=== PATIENT | male | born 1950 | race Caucasian/White ===

== ENCOUNTER 2016-11-21 09:13 | Day surgery (SDC) | payer MEDICARE, OTHER ==
[~2016-11-21 09:13] MED LIST: CYCLOPENTOLATE 1% OPHTH DROPS 2 ML OPTH ONE; LIDOCAINE-MPF 2% 5 ML VIAL IM ONE; PHENYLEPHRINE 2.5% OPHTH 2 ML DROPS ONE; PHENYLEPHRINE 2.5% OPHTH 2 ML DROPS OPTH ONE; PROPARACAINE 0.5% OPHTH DROPS 15 ML OPTH ONE
[2016-11-21] MEDS ORDERED: LACTATED RINGERS 500 ML IV ONE (09:40)
[2016-11-21] MEDS ORDERED: LIDOCAINE-MPF 2% 5 ML VIAL IM ONE (10:20)
[2016-11-21] MEDS ORDERED: PROPOFOL 200 MG/20 ML VIAL IVP ONE (10:20)
[2016-11-21] MEDS ORDERED: MIDAZOLAM 2 MG/2 ML VIAL IVP ONE (10:20)
[2016-11-21] MEDS ORDERED: EPINEPHrine 1 MG/ML AMP IVP ONE (10:27)
[2016-11-21] MEDS ORDERED: BRIMONIDINE 0.2% OPHTH DROPS 5 ML OPTH ONE (10:27)
[2016-11-21] MEDS ORDERED: CHONDR SULF/HYALURONATE SYRINGE IO ONE (10:28)
[2016-11-21] MEDS ORDERED: TRIAMCIN/MOXIFLOX/VANCO 1 ML VIAL IO ONE ×2 (10:28)
[2016-11-21] MEDS ORDERED: PROPARACAINE 0.5% OPHTH DROPS 15 ML OPTH ONE (10:28)
[2016-11-21] MEDS ORDERED: BSS/LIDOCAINE/EPINEPHRINE 1 ML SYRINGE IO ONE ×2 (10:28)
[2016-11-21] MEDS ORDERED: TIMOLOL 0.5% OPHTH DROPS OPTH ONE (10:28)
== END 2016-11-21 09:14 | disposition home or self-care (01) ==
PROC: 08RJ3JZ Replacement of Right Lens with Synthetic Substitute, Percutaneous Approach (ICD-10-PCS; principal; 2016-11-21 10:30)
DX: H25.11 Age-related nuclear cataract, right eye (principal); I10 Essential (primary) hypertension; Z88.0 Allergy status to penicillin; J45.909 Unspecified asthma, uncomplicated; M10.9 Gout, unspecified; Z79.82 Long term (current) use of aspirin
CPT/HCPCS: 66984; A9270; V2632

== ENCOUNTER 2017-01-17 06:21 | Emergency (ER) | payer MEDICARE, OTHER ==
[2017-01-17 06:28] VITALS: BP 155/83
--- NOTE | 2017-01-17 06:35 | ED Physician Documentation ---
PD HPI LOWER EXT INJURY - Stated complaint Stated Complaint: R FOOT INJURY - Chief complaint Chief Complaint: Ext Problem - History obtained from History obtained from: Patient - History of Present Illness PD HPI LOW EXT INJURY LOCATION: Right, Foot Type of injury: Fall (several feet from on step ladder while picking cherries ( ladder kicked out), and he landed onto right foot with impact and twist. Having pain and swelling in mid foot. Pain with walking. He presumed it would improve over a few days but has not.) Timing - onset: How many days ago (4) Timing - duration: Days (4) Timing - details: Abrupt onset, Still present Worsened by: Moving, Palpating, Other (walking) Associated symptoms: Swelling. No: Weakness, Numbness Similar symptoms before: Has not had sx before Recently seen: Not recently seen Review of Systems Musculoskeletal: denies: Neck pain, Back pain Neurologic: denies: Focal weakness, Numbness PD PAST MEDICAL HISTORY - Past Medical History Cardiovascular: None Respiratory: Asthma Endocrine/Autoimmune: None GI: GERD : None HEENT: None Musculoskeletal: Osteoarthritis Derm: None, Other - Past Surgical History Past Surgical History: Yes General: Hiatal hernia repair Ortho: Shoulder arthroplasty - Present Medications Home Medications: Ambulatory Orders Medication Instructions Recorded Confirmed Allopurinol 300 mg PO DAILY 11/01/14 01/17/17 Aspirin [Aspir 81] 81 mg PO DAILY 11/01/14 01/17/17 Hydroxyurea 1,500 mg PO DAILY 11/01/14 01/17/17 Omeprazole 20 mg PO DAILY 11/01/14 01/17/17 Beclomethasone 40 Mcg [Qvar 40] 2 puffs PO DAILY 11/21/16 01/17/17 Fluorouracil 30 gm TP DAILY 11/21/16 01/17/17 Fluticasone [Flonase] 2 spray JESSI DAILY 11/21/16 01/17/17 Montelukast [Singulair] 10 mg PO DAILY 11/21/16 01/17/17 Tramadol HCl 50 mg PO Q6H PRN #20 tablet 01/17/17 - Allergies Allergies/Adverse Reactions: Allergies Allergy/AdvReac Type Severity Reaction Status Date / Time meperidine HCl * AdvReac Intermediate Hives Verified 01/17/17 06:42 [From Demerol] Penicillins AdvReac Intermediate Hives Verified 01/17/17 06:42 - Social History Does the pt smoke?: No Smoking Status: Never smoker Does the pt drink ETOH?: Yes Does the pt have substance abuse?: No - Immunizations Immunizations are current?: Yes Immunizations: TDAP >10years/unknown - POLST Patient has POLST: No PD ED PE NORMAL - Vitals Vital signs reviewed: Yes - General General: Alert and oriented X 3, Well developed/nourished - Back Back: No CVA TTP, No spinal TTP - Derm Derm: Normal color, Warm and dry - Extremities Extremities: Other (right foot with swelling and bruising mid foot lateral and plantar aspect. ) - Neuro Neuro: No motor deficit, No sensory deficit Results - Vitals Vitals: Vital Signs - 24 hr 01/17/17 06:25 Temperature 36.4 C L Heart Rate 73 Respiratory 16 Rate Blood Pressure 155/83 H O2 Saturation 99 Oxygen O2 Source Room air - Rads (name of study) right foot Radiology: Prelim report reviewed, EMP read contemporaneously (proximal 5th MT fracture, nondisplaced. ) PD MEDICAL DECISION MAKING - ED course Complexity details: reviewed results (he has had foot surgery by Mail Agent at and he will call him for follow up. ), considered differential, d/w patient Departure - Departure Disposition: 01 Home, Self Care Clinical Impression: Metatarsal bone fracture Qualifiers: Encounter type: initial encounter Metatarsal bone: fifth Fracture type: closed Fracture alignment: nondisplaced Laterality: right Qualified Code(s): S92.354A - Nondisplaced fracture of fifth metatarsal bone, right foot, initial encounter for closed fracture Condition: Stable Record reviewed to determine appropriate education?: Yes Instructions: ED Fx Foot Follow-Up: Malik Kaur MD [Primary Care Provider] - Prescriptions: Tramadol HCl 50 mg PO Q6H PRN #20 tablet PRN Reason: Pain Comments: Use the walking boot splint when walking/weight bearing for the initial 10-14 days. Call your Mail Agent for an appt in the next 7-10 days. Elevate and rest the foot often for the swelling. Ibuprofen or Naproxen twice daily for inflammation and pain. Add Tylenol and/or Tramadol as needed for pains.
--- NOTE | 2017-01-17 07:21 | XRAY Preliminary Report ---
Exam: XR Foot 3 View RT IMPRESSION: 1. Acute minimally displaced fifth metatarsal base fracture is noted. 2. Unchanged appearance of postsurgical changes in the foot compared to 2012. [facility] SITE ID: [id number]
--- NOTE | 2017-01-17 07:24 | XRAY Report ---
EXAM: RIGHT FOOT RADIOGRAPHY EXAM DATE: 01/17/2017 06:59 AM. CLINICAL HISTORY: Fall from ladder. COMPARISON: 02/22/2012. TECHNIQUE: 3 views. FINDINGS: Bones: Oblique minimally displaced intra-articular fracture of the base of the fifth metatarsal. Irre gularity of the fifth metatarsal head also noted. There is been resection of the fifth middle phalanx . Pinning of the fourth metatarsal head again noted. Joints: Metallic yumi noted for arthrodesis across the first tarsometatarsal joint with expected a ppearance, without evidence for surrounding lucency or break.. Incomplete fusion across the joint. Me dial subluxations at the second and third MTP joints. Stable joint space narrowing with osteophytes n oted at multiple MTP joints. Soft Tissues: Soft tissue swelling at the lateral aspect of the foot. IMPRESSION: 1. Acute minimally displaced fifth metatarsal base fracture is noted. 2. Unchanged appearance of postsurgical changes in the foot compared to 2011. [facility] Referring Provider Line: [phone] SITE ID: [id number]
== END 2017-01-17 07:29 | disposition home or self-care (01) ==
LOC: ED 06:21
DX: S92.354A Nondisplaced fracture of fifth metatarsal bone, right foot, initial encounter for closed fracture (principal); W11.XXXA Fall on and from ladder, initial encounter; Y93.89 Activity, other specified; Z79.82 Long term (current) use of aspirin
CPT/HCPCS: 99283

== ENCOUNTER 2017-07-04 11:35 | Outpatient (CLI) | payer MEDICARE, OTHER ==
--- NOTE | 2017-07-04 12:16 | XRAY Report ---
RIGHT ELBOW: 07/04/2017 COMPARISON: None. INDICATION: Pain and swelling of the right elbow. History of gout. TECHNIQUE: Three views of the right elbow. FINDINGS: There is a lucent lesion of the proximal radius with internal osteoid matrix. There is a thin zone of transition. There is a small osteophyte of the olecranon process with mild overlying olecranon soft tissue swelling. Normal alignment. No acute bone findings in other regards. IMPRESSION: 1. NONSPECIFIC, NONAGGRESSIVE APPEARING LESION OF THE PROXIMAL RADIUS. 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 2. SMALL OLECRANON ENTHESOPHYTE WITH OVERLYING SOFT TISSUE SWELLING. JOB #: [id number] EXT JOB #: [id number] JENNIFER
== END 2017-07-04 11:36 | disposition home or self-care (01) ==
LOC: DI 11:35
PROVIDERS: ATTEND Physician Assistant Medical
DX: M89.9 Disorder of bone, unspecified (principal); R22.31 Localized swelling, mass and lump, right upper limb; M77.8 Other enthesopathies, not elsewhere classified

== ENCOUNTER 2020-12-13 10:00 | Outpatient (CLI) | payer MEDICARE, OTHER | END 2020-12-13 23:59 | disposition home or self-care (01) | LOC: COV 10:00 | PROVIDERS: ATTEND Urology | DX: Z01.812 Encounter for preprocedural laboratory examination (principal); Z20.822 Contact with and (suspected) exposure to COVID-19 ==

== ENCOUNTER 2021-05-09 17:45 | Outpatient (CLI) | payer MEDICARE, OTHER | END 2021-05-09 17:46 | disposition critical access hospital (66) | LOC: EMS 17:45 | DX: R11.10 Vomiting, unspecified (principal); R19.7 Diarrhea, unspecified; R50.9 Fever, unspecified | CPT/HCPCS: A0425; A0429 ==

== ENCOUNTER 2021-05-09 18:18 | Emergency (ER) | payer MEDICARE, OTHER ==
[2021-05-09] MEDS ORDERED: SODIUM CHLORIDE 0.9% 1,000 ML IV STA (18:24)
[2021-05-09 18:52] LABS: BASOPHILS % (AUTO) 0.3 %; EOSINOPHILS % (AUTO) 0.1 %; HCT - HEMATOCRIT 39.7 % (42.0-52.0); HGB - HEMOGLOBIN 13.6 g/dL (14.0-18.0); LYMPHOCYTES % (AUTO) 6.2 %; MEAN CORPUSCULAR HEMOGLOBIN 38.5 pg (27.0-31.0); MEAN CORPUSCULAR HGB CONC 34.3 g/dL (32.0-36.0); MEAN CORPUSCULAR VOLUME 112.5 fL (80.0-94.0); MEAN PLATELET VOLUME 9.4 fL (7.4-11.4); MONOCYTES % (AUTO) 14.4 %; NEUTROPHILS % (AUTO) 73.2 %; PLT - PLATELET COUNT 385 10^3/uL (130-450); RED BLOOD COUNT 3.53 10^6/uL (4.70-6.10); RED CELL DISTRIBUTION WIDTH 13.7 % (12.0-15.0); WHITE BLOOD COUNT 6.9 x10^3/uL (4.8-10.8)
[2021-05-09 18:54] LABS: SLIDE REVIEW? Indicated
[2021-05-09 19:09] LABS: ALBUMIN 4.3 g/dL (3.2-5.5); ALBUMIN/GLOBULIN RATIO 1.5 (1.0-2.2); CALCIUM 8.8 mg/dL (8.5-10.3); POTASSIUM 3.5 mmol/L (3.5-5.0); TOTAL PROTEIN 7.1 g/dL (6.7-8.2)
[2021-05-09 19:19] LABS: ABNORMAL LYMPHS % (MANUAL) 0 %
[2021-05-09 19:23] LABS: BAND NEUTROPHILS % (MANUAL) 10 %; BASOPHILS # (MANUAL) 0.1 10^3/uL (0-0.1); BASOPHILS % (MANUAL) 1 %; LYMPHOCYTES # (MANUAL) 0.7 10^3/uL (1.5-3.5); LYMPHOCYTES % (MANUAL) 10 %; METAMYELOCYTES % (MANUAL) 1 %; MONOCYTES # (MANUAL) 0.9 10^3/uL (0.0-1.0); NEUTROPHILS # (MANUAL) 5.2 10^3/uL (1.5-6.6)
[2021-05-09 19:25] LABS: DIFFERENTIAL COMMENT MANUAL DIFFERENTIAL; PLATELET ESTIMATE, MANUAL NORMAL (130-450,000) (NORMAL); PLATELET MORPHOLOGY NORMAL APPEARANCE (NORMAL); WBC MORPHOLOGY (MULTIPLE) NORMAL APPEARANCE (NORMAL)
[2021-05-09 20:09] LABS: B. PARAPERTUSSIS- RESP PCR PAN NOT DETECTED; B. PERTUSSIS- RESP PCR PANEL NOT DETECTED; C. PNEUMONIAE- RESP PCR PANEL NOT DETECTED; CORONAVIRUS 229E-RESP PCR NOT DETECTED; CORONAVIRUS HKU1-RESP PCR NOT DETECTED; CORONAVIRUS NL63-RESP PCR NOT DETECTED; CORONAVIRUS OC43-RESP PCR NOT DETECTED; HUMAN METAPNEUMOVIRUS NOT DETECTED; INFLUENZA A- RESP PCR PANEL NOT DETECTED; INFLUENZA B - RESP PCR PANEL NOT DETECTED; M. PNEUMONIAE- RESP PCR PANEL NOT DETECTED; PARAINFLUENZA VIRUS 1 NOT DETECTED; PARAINFLUENZA VIRUS 2 NOT DETECTED; PARAINFLUENZA VIRUS 3 NOT DETECTED; PARAINFLUENZA VIRUS 4 NOT DETECTED; RHINOVIRUS/ENTEROVIRUS NOT DETECTED; RSV- RESP PCR PANEL NOT DETECTED; SARS-CoV-2 -RESP PCR PANEL NOT DETECTED
--- NOTE | 2021-05-09 21:02 | ED Physician Documentation ---
History of Present Illness - Stated complaint Stated Complaint: N/V/D - Chief complaint Chief Complaint: General - History obtained from History obtained from: Patient - History of Present Illness Timing: How many days ago (2) Pain level max: 0 Pain level now: 0 - Additonal information Additional information: Patient is a 70-year-old male who presents to the emergency department stating he is. He went to the walk-in clinic today and was sent here for further evaluation. He states he did have fevers 2 days ago, none today. No recent antibiotics, no recent travel. He does not know anyone else who has been ill. Has been vaccinated against Covid. No cough. No congestion. No sore throat. He states that he is starting to feel better. He was having diarrhea 8-9 times per day. He states he has not been vomiting tonight. Review of Systems Constitutional: reports: Fever Ears: denies: Ear pain Nose: denies: Rhinorrhea / runny nose, Congestion Throat: denies: Sore throat Cardiac: denies: Chest pain / pressure, Palpitations Respiratory: denies: Dyspnea, Cough GI: reports: Nausea, Vomiting, Diarrhea. denies: Abdominal Pain, Constipation, Hematemesis, Bloody / black stool : denies: Dysuria Skin: denies: Rash Musculoskeletal: denies: Neck pain, Back pain Neurologic: denies: Headache PD PAST MEDICAL HISTORY - Past Medical History Past Medical History: Yes Cardiovascular: None Respiratory: Asthma Endocrine/Autoimmune: None GI: GERD : None HEENT: None Musculoskeletal: Osteoarthritis Derm: None, Other - Past Surgical History Past Surgical History: Yes General: Hiatal hernia repair Ortho: Shoulder arthroplasty - Present Medications Home Medications: Ambulatory Orders Medication Instructions Recorded Confirmed Aspirin [Aspir 81] 81 mg PO DAILY 11/01/14 01/17/17 Hydroxyurea 1,500 mg PO DAILY 11/01/14 01/17/17 Omeprazole 20 mg PO DAILY 11/01/14 01/17/17 allopurinoL [Allopurinol] 300 mg PO DAILY 11/01/14 01/17/17 Beclomethasone 40 Mcg [Qvar 40] 2 puffs PO DAILY 11/21/16 01/17/17 Fluticasone [Flonase] 2 spray JESSI DAILY 11/21/16 01/17/17 Montelukast [Singulair] 10 mg PO DAILY 11/21/16 01/17/17 fluorouraciL [Fluorouracil] 30 gm TP DAILY 11/21/16 01/17/17 Tramadol HCl 50 mg PO Q6H PRN #20 tablet 01/17/17 Ondansetron Odt [Zofran] 4 mg TL Q6H PRN #10 tablet 05/09/21 - Allergies Allergies/Adverse Reactions: Allergies Allergy/AdvReac Type Severity Reaction Status Date / Time meperidine HCl * AdvReac Intermediate Hives Verified 01/17/17 06:42 [From Demerol] Penicillins AdvReac Intermediate Hives Verified 01/17/17 06:42 - Social History Does the pt smoke?: No Smoking Status: Never smoker Does the pt drink ETOH?: Yes Does the pt have substance abuse?: No - Immunizations Immunizations are current?: Yes Immunizations: TDAP >10years/unknown - POLST Patient has POLST: No PD ED PE NORMAL - Vitals Vital signs reviewed: Yes - General General: Alert and oriented X 3, No acute distress, Well developed/nourished - HEENT HEENT: Moist mucous membranes - Neck Neck: Supple, no meningeal sign - Cardiac Cardiac: RRR, Strong equal pulses - Respiratory Respiratory: No respiratory distress, Clear bilaterally - Abdomen Abdomen: Normal bowel sounds, Soft, Non tender, Non distended - Back Back: No spinal TTP - Derm Derm: Warm and dry - Extremities Extremities: No edema - Neuro Neuro: Alert and oriented X 3 - Psych Psych: Normal mood, Normal affect Results - Vitals Vitals: Vital Signs - 24 hr 05/09/21 21:03 Heart Rate 100 Respiratory 14 Rate Blood Pressure 141/87 H O2 Saturation 98 Oxygen O2 Source Room air - Labs Labs: Laboratory Tests 05/09/21 05/09/21 05/09/21 18:45 18:45 18:45 WBC 6.9 RBC 3.53 L Hgb 13.6 L Hct 39.7 L MCV 112.5 H MCH 38.5 H MCHC 34.3 RDW 13.7 Plt Count 385 MPV 9.4 Neut # (Auto) Not Reportable Lymph # (Auto) Not Reportable [place] # (Auto) Not Reportable Eos # (Auto) Not Reportable Baso # (Auto) Not Reportable Absolute Nucleated RBC Not Reportable Total Counted 100 Band Neuts % (Manual) 10 Abnorm Lymph % (Manual) 0 Metamyelocytes % 1 H Nucleated RBC % Not Reportable Neutrophils # (Manual) 5.2 Lymphocytes # (Manual) 0.7 L Monocytes # (Manual) 0.9 Eosinophils # (Manual) 0.0 Basophils # (Manual) 0.1 Differential Comment MANUAL DIFFERENTIAL Manual Slide Review Indicated WBC Morphology NORMAL APPEARANCE Platelet Estimate NORMAL (130-450,000) Platelet Morphology NORMAL APPEARANCE RBC Morph Micro Appear 1+ POLYCHROMASIA Sodium 135 Potassium 3.5 Chloride 99 L Carbon Dioxide 24 Anion Gap 12.0 BUN 25 H Creatinine 1.0 Estimated GFR (MDRD) 73 L Glucose 160 H Calcium 8.8 Total Bilirubin 1.0 AST 24 ALT 22 Alkaline Phosphatase 43 Total Protein 7.1 Albumin 4.3 Globulin 2.8 Albumin/Globulin Ratio 1.5 Lipase 20 L Urine Color Urine Clarity Urine pH Ur Specific [place] Urine Protein Urine Glucose (UA) Urine Ketones Urine Occult Blood Urine Nitrite Urine Bilirubin Urine Urobilinogen Ur Leukocyte Esterase Urine RBC Urine WBC Ur Squamous Epith Cells Urine Bacteria Urine Casts Ur Microscopic Review Urine Culture Comments Nasal Adenovirus (PCR) NOT DETECTED Nasal B. parapertussis DNA (PCR) NOT DETECTED Nasal Coronavir 229E PCR NOT DETECTED Nasal Coronavir HKU1 PCR NOT DETECTED Nasal Coronavir NL63 PCR NOT DETECTED Nasal Coronavir OC43 PCR NOT DETECTED Nasal Enterovir/Rhinovir PCR NOT DETECTED Nasal Influenza B PCR NOT DETECTED Nasal Influenza A PCR NOT DETECTED Nasal Parainfluen 1 PCR NOT DETECTED Nasal Parainfluen 2 PCR NOT DETECTED Nasal Parainfluen 3 PCR NOT DETECTED Nasal Parainfluen 4 PCR NOT DETECTED Nasal RSV (PCR) NOT DETECTED Nasal B.pertussis DNA PCR NOT DETECTED Nasal C.pneumoniae (PCR) NOT DETECTED Jessi Human Metapneumo PCR NOT DETECTED Nasal M.pneumoniae (PCR) NOT DETECTED Nasal SARS-CoV-2 (PCR) NOT DETECTED 05/09/21 21:00 WBC RBC Hgb Hct MCV MCH MCHC RDW Plt Count MPV Neut # (Auto) Lymph # (Auto) [place] # (Auto) Eos # (Auto) Baso # (Auto) Absolute Nucleated RBC Total Counted Band Neuts % (Manual) Abnorm Lymph % (Manual) Metamyelocytes % Nucleated RBC % Neutrophils # (Manual) Lymphocytes # (Manual) Monocytes # (Manual) Eosinophils # (Manual) Basophils # (Manual) Differential Comment Manual Slide Review WBC Morphology Platelet Estimate Platelet Morphology RBC Morph Micro Appear Sodium Potassium Chloride Carbon Dioxide Anion Gap BUN Creatinine Estimated GFR (MDRD) Glucose Calcium Total Bilirubin AST ALT Alkaline Phosphatase Total Protein Albumin Globulin Albumin/Globulin Ratio Lipase Urine Color YELLOW Urine Clarity CLEAR Urine pH 6.0 Ur Specific [place] >=1.030 H Urine Protein 100 H Urine Glucose (UA) NEGATIVE Urine Ketones 15 H Urine Occult Blood SMALL H Urine Nitrite NEGATIVE Urine Bilirubin NEGATIVE Urine Urobilinogen 0.2 (NORMAL) Ur Leukocyte Esterase NEGATIVE Urine RBC 0-5 Urine WBC 0-3 Ur Squamous Epith Cells FEW Squamous Urine Bacteria Few Urine Casts 0-2 Course Granular Ur Microscopic Review INDICATED Urine Culture Comments NOT INDICATED Nasal Adenovirus (PCR) Nasal B. parapertussis DNA (PCR) Nasal Coronavir 229E PCR Nasal Coronavir HKU1 PCR Nasal Coronavir NL63 PCR Nasal Coronavir OC43 PCR Nasal Enterovir/Rhinovir PCR Nasal Influenza B PCR Nasal Influenza A PCR Nasal Parainfluen 1 PCR Nasal Parainfluen 2 PCR Nasal Parainfluen 3 PCR Nasal Parainfluen 4 PCR Nasal RSV (PCR) Nasal B.pertussis DNA PCR Nasal C.pneumoniae (PCR) Jessi Human Metapneumo PCR Nasal M.pneumoniae (PCR) Nasal SARS-CoV-2 (PCR) PD MEDICAL DECISION MAKING - ED course Complexity details: reviewed results, re-evaluated patient, considered differential, d/w patient ED course: Patient is well-appearing, nontoxic. Given IV fluids and does feel better Tolerating p.o. without difficulty here. No significant lab abnormalities. Eating and drinking without difficulty. No diarrhea in the emergency department. Appears to be likely viral gastroenteritis. Abdomen is soft, nontender nondistended on serial exam. Expect this will improve over the next 1 to 2 days. Patient counseled regarding signs and symptoms for which I believe and urgent re-evaluation would be necessary. Patient with good understanding of and agreement to plan and is comfortable going home at this time This document was made in part using voice recognition software. While efforts are made to proofread this document, sound alike and grammatical errors may occur. Departure - Departure Disposition: 01 Home, Self Care Clinical Impression: Viral gastroenteritis Condition: Good Instructions: ED Gastroenteritis Viral Follow-Up: Malik Kaur MD [Primary Care Provider] - Within 1 week Prescriptions: Ondansetron Odt [Zofran] 4 mg TL Q6H PRN #10 tablet PRN Reason: Nausea / Vomiting Comments: This normally improves over 4 to 5 days. Drink plenty of fluids. You can use Tylenol as needed for fever. Return if you worsen. Your prescriptions were sent to [facility] in [place]. Discharge Date/Time: 05/09/21 21:11
[2021-05-09 21:05] VITALS: BP 141/87
[2021-05-09 21:11] LABS: GLUCOSE, URINE (UA) NEGATIVE (NEGATIVE); KETONES,URINE (UA) 15 mg/dL (NEGATIVE); LEUKOCYTE ESTERASE, URINE NEGATIVE (NEGATIVE); NITRITE,URINE NEGATIVE (NEGATIVE); OCCULT BLOOD,URINE SMALL (NEGATIVE); PROTEIN,URINE 100 mg/dL (NEGATIVE); UROBILINOGEN,URINE 0.2 (NORMAL) E.U./dL (NORMAL)
[2021-05-09 21:19] LABS: BILIRUBIN,URINE NEGATIVE (NEGATIVE); CLARITY,URINE CLEAR (CLEAR); ICTOTEST,URINE NEGATIVE; WBC,URINE 0-3 /HPF (0-3)
[2021-05-09 21:20] LABS: BACTERIA,URINE Few /HPF (None Seen); CASTS, URINE 0-2 Course Granular /LPF; RBC,URINE 0-5 /HPF (0-5); SQUAMOUS EPITHELIAL CELL,UR FEW Squamous (<= Few)
== END 2021-05-09 21:11 | disposition home or self-care (01) ==
LOC: EDUNIT# → ED 18:18
DX: A08.4 Viral intestinal infection, unspecified (principal); Z20.822 Contact with and (suspected) exposure to COVID-19; Z79.82 Long term (current) use of aspirin
CPT/HCPCS: 0202U; 36415; 80053; 81001; 81003; 83690; 85025; 87086; 99283

== ENCOUNTER 2021-05-14 11:49 | Inpatient (IN) | payer MEDICARE, OTHER ==
[2021-05-14] MEDS ORDERED: SODIUM CHLORIDE 0.9% 1,000 ML IV STA ×2 (13:16→14:51)
[2021-05-14 13:21] LABS: BASOPHILS % (AUTO) 1.2 %; EOSINOPHILS % (AUTO) 1.7 %; HCT - HEMATOCRIT 42.9 % (42.0-52.0); MEAN CORPUSCULAR HEMOGLOBIN 37.6 pg (27.0-31.0); MEAN CORPUSCULAR VOLUME 107.5 fL (80.0-94.0); MEAN PLATELET VOLUME 9.8 fL (7.4-11.4); MONOCYTES % (AUTO) 7.4 %; NEUTROPHILS % (AUTO) 50.7 %; RED BLOOD COUNT 3.99 10^6/uL (4.70-6.10); RED CELL DISTRIBUTION WIDTH 13.8 % (12.0-15.0); WHITE BLOOD COUNT 18.6 x10^3/uL (4.8-10.8)
[2021-05-14 13:26] LABS: PLT - PLATELET COUNT 845 10^3/uL (130-450)
[2021-05-14 13:30] LABS: ALBUMIN 3.2 g/dL (3.2-5.5); BILIRUBIN,TOTAL 1.2 mg/dL (0.2-1.0); CALCIUM 7.3 mg/dL (8.5-10.3); TOTAL PROTEIN 6.4 g/dL (6.7-8.2)
[2021-05-14 13:31] LABS: POTASSIUM 1.7 mmol/L (3.5-5.0)
--- NOTE | 2021-05-14 13:33 | ED Physician Documentation ---
PD HPI NVD - Stated complaint Stated Complaint: DIARRHEA, DEHYDRATION - Chief complaint Chief Complaint: Abd Pain - History obtained from History obtained from: Patient, Family - History of Present Illness Timing - onset: How many weeks ago (1) Timing - duration: Weeks (1) Timing - details: Abrupt onset, Still present Associated symptoms: Abdominal pain, Dizzy, Near syncope / syncope, Weight loss Contributing factors: No: Sick contact, Bad food, Travel, Recent antibiotics, Alcohol use, Anticoagulated, Diabetes Improved by: BM Worsened by: Eating Similar symptoms before: Has not had sx before Recently seen: Emergency Dept - Additonal information Additional information: 70-year-old male with a history of thrombocytosis who is on hydroxyurea has developed acute explosive diarrhea. He has had as many as 75 diarrheal movements. He has become weak. His weakness is now profound. He has been able to drink water but states that he is having to go to the bathroom at least every 2 hours. He has lost 12 pounds. He was asked by his primary care doctor with [facility] to come into the emergency department for hydration. Review of Systems Constitutional: reports: Chills, Myalgias, Fatigue, Sweats. denies: Fever Eyes: denies: Decreased vision Ears: denies: Ear pain Nose: denies: Rhinorrhea / runny nose, Congestion Throat: denies: Sore throat Cardiac: denies: Chest pain / pressure, Palpitations Respiratory: denies: Dyspnea, Cough GI: reports: Abdominal Pain, Nausea, Vomiting (resolved X 5 days), Diarrhea : denies: Dysuria, Frequency Skin: denies: Rash Musculoskeletal: denies: Neck pain, Back pain, Extremity pain Neurologic: reports: Generalized weakness. denies: Focal weakness, Numbness PD PAST MEDICAL HISTORY - Past Medical History Past Medical History: Yes Cardiovascular: None Respiratory: Asthma Endocrine/Autoimmune: None GI: GERD : None HEENT: None Musculoskeletal: Osteoarthritis Derm: None, Other - Past Surgical History Past Surgical History: Yes General: Hiatal hernia repair Ortho: Shoulder arthroplasty - Present Medications Home Medications: Ambulatory Orders Medication Instructions Recorded Confirmed Aspirin [Aspir 81] 81 mg PO DAILY 11/01/14 01/17/17 Hydroxyurea 1,500 mg PO DAILY 11/01/14 01/17/17 Omeprazole 20 mg PO DAILY 11/01/14 01/17/17 allopurinoL [Allopurinol] 300 mg PO DAILY 11/01/14 01/17/17 Beclomethasone 40 Mcg [Qvar 40] 2 puffs PO DAILY 11/21/16 01/17/17 Fluticasone [Flonase] 2 spray JESSI DAILY 11/21/16 01/17/17 Montelukast [Singulair] 10 mg PO DAILY 11/21/16 01/17/17 fluorouraciL [Fluorouracil] 30 gm TP DAILY 11/21/16 01/17/17 Tramadol HCl 50 mg PO Q6H PRN #20 tablet 01/17/17 Ondansetron Odt [Zofran] 4 mg TL Q6H PRN #10 tablet 05/09/21 - Allergies Allergies/Adverse Reactions: Allergies Allergy/AdvReac Type Severity Reaction Status Date / Time meperidine HCl * AdvReac Intermediate Hives Verified 05/14/21 12:26 [From Demerol] Penicillins AdvReac Intermediate Hives Verified 05/14/21 12:26 - Social History Does the pt smoke?: No Smoking Status: Never smoker Does the pt drink ETOH?: Yes Does the pt have substance abuse?: No - Immunizations Immunizations are current?: Yes Immunizations: TDAP >10years/unknown - POLST Patient has POLST: No PD ED PE NORMAL - Vitals Vital signs reviewed: Yes (tachy and hypotensive with wide pulse pressure) - General General: Alert and oriented X 3, No acute distress, Well developed/nourished - HEENT HEENT: Atraumatic, PERRL, EOMI, Other (dry mucous membranes ) - Neck Neck: Supple, no meningeal sign, No bony TTP - Cardiac Cardiac: No murmur, Other (tachy ) - Respiratory Respiratory: No respiratory distress, Clear bilaterally - Abdomen Abdomen: Normal bowel sounds, Soft, Non distended, No organomegaly, Other (mild suprapubic tenderness without garding. 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, No motor deficit, No sensory deficit, Normal speech Eye Opening: Spontaneous Motor: Obeys Commands Verbal: Oriented GCS Score: 15 - Psych Psych: Normal mood, Normal affect Results - Vitals Vitals: Vital Signs - 24 hr 05/14/21 12:18 Temperature 36.9 C Heart Rate 112 H Respiratory 16 Rate Blood Pressure 106/58 L O2 Saturation 98 Oxygen O2 Source Room air - Labs Labs: Laboratory Tests 05/14/21 05/14/21 13:03 13:03 WBC 18.6 H RBC 3.99 L Hgb 15.0 Hct 42.9 MCV 107.5 H MCH 37.6 H MCHC 35.0 RDW 13.8 Plt Count 845 H* MPV 9.8 Neut # (Auto) Not Reportable Lymph # (Auto) Not Reportable [place] # (Auto) Not Reportable Eos # (Auto) Not Reportable Baso # (Auto) Not Reportable Absolute Nucleated RBC Not Reportable Total Counted 100 Band Neuts % (Manual) 7 Reactive Lymphs % (Man) 2 Abnorm Lymph % (Manual) 5 Metamyelocytes % 4 H Nucleated RBC % Not Reportable Neutrophils # (Manual) 12.3 H Lymphocytes # (Manual) 2.8 Monocytes # (Manual) 2.0 H Eosinophils # (Manual) 0.7 Basophils # (Manual) 0.0 Differential Comment MANUAL DIFFERENTIAL Platelet Estimate INCREASED (>450,000) Platelet Morphology 1+ LARGE PLATELETS RBC Morph Micro Appear 1+ MACROCYTOSIS Sodium 132 L Potassium 1.7 L* Chloride 99 L Carbon Dioxide 19 L Anion Gap 14.0 H BUN 21 H Creatinine 1.0 Estimated GFR (MDRD) 73 L Glucose 98 Calcium 7.3 L Total Bilirubin 1.2 H AST 24 ALT 25 Alkaline Phosphatase 57 Total Protein 6.4 L Albumin 3.2 Globulin 3.2 Albumin/Globulin Ratio 1.0 Lipase 61 H Slides for Path Review Indicated Procedures - IVC sono (time) 1445 Bedside IVC sono: IVC measures (cm) (0.92), Dehydration (est 2 liter deficit after one liter administered.) PD MEDICAL DECISION MAKING - ED course Complexity details: reviewed old records, reviewed results, re-evaluated patient, considered differential, d/w patient ED course: 70-year-old male with a history of thrombocytosis who is on hydroxyurea has developed an acute gastroenteritis that started with vomiting and diarrhea and now it has severe frequent diarrhea. He has lost significant fluid and potassium. His potassium is critically low at 1.7. He is administered intravenous and oral potassium as well as intravenous fluid. His stool specimen has been sent on to the for the stool panel. Lab is working on the results. Dr. Rocha is consulted in the case and will care for the patient on an observational status for re hydration and continued potassium replacement. Departure - Departure Disposition: ED Place in Observation Clinical Impression: Dehydration, Hypokalemia due to excessive gastrointestinal loss of potassium Condition: Stable
[2021-05-14] MEDS ORDERED: POTASSIUM CHLORIDE 20 MEQ/15 ML UDC PO STA (13:43)
[2021-05-14 13:48] LABS: ABNORMAL LYMPHS % (MANUAL) 5 %; BAND NEUTROPHILS % (MANUAL) 7 %; EOSINOPHILS # (MANUAL) 0.7 10^3/uL (0-0.7); LYMPHOCYTES # (MANUAL) 2.8 10^3/uL (1.5-3.5); LYMPHOCYTES % (MANUAL) 8 %; METAMYELOCYTES % (MANUAL) 4 %; NEUTROPHILS # (MANUAL) 12.3 10^3/uL (1.5-6.6); REACTIVE LYMPHS % (MANUAL) 2 %
[2021-05-14 13:49] LABS: RBC MORPHOLOGY (MULTIPLE) 1+ MACROCYTOSIS (NORMAL)
[2021-05-14 13:50] LABS: DIFFERENTIAL COMMENT MANUAL DIFFERENTIAL; PLATELET ESTIMATE, MANUAL INCREASED (>450,000) (NORMAL); PLATELET MORPHOLOGY 1+ LARGE PLATELETS (NORMAL); SLIDE SENT FOR PATH REVIEW? Indicated
[2021-05-14] MEDS: POTASSIUM CHLOR 10 MEQ/100 ML 10 MEQ/100 ML BAG IV SCH ×8 (14:00→23:38)
[2021-05-14] MEDS ORDERED: ACETAMINOPHEN 325 MG TABLET PO PRN (15:21)
[2021-05-14] MEDS ORDERED: SODIUM CHLORIDE FLUSH 0.9% 10 ML SYRINGE IVP PRN (15:21)
[2021-05-14] MEDS ORDERED: oxyCODONE 5 MG TABLET PO PRN (15:21)
[2021-05-14] MEDS ORDERED: ONDANSETRON 4 MG/2 ML VIAL IVP PRN (15:21)
[2021-05-14] MEDS ORDERED: ALBUTEROL NEB 2.5 MG/3 ML INH STA (15:29)
[2021-05-14 15:45] LABS: GLUCOSE, URINE (UA) NEGATIVE (NEGATIVE); KETONES,URINE (UA) >=80 mg/dL (NEGATIVE); LEUKOCYTE ESTERASE, URINE NEGATIVE (NEGATIVE); NITRITE,URINE NEGATIVE (NEGATIVE); OCCULT BLOOD,URINE SMALL (NEGATIVE); PROTEIN,URINE 30 mg/dL (NEGATIVE); UROBILINOGEN,URINE 0.2 (NORMAL) E.U./dL (NORMAL)
[2021-05-14 15:53] LABS: POTASSIUM 2.7 mmol/L (3.5-5.0)
[2021-05-14 16:04] LABS: BILIRUBIN,URINE NEGATIVE (NEGATIVE); CLARITY,URINE CLEAR (CLEAR); ICTOTEST,URINE NEGATIVE
[2021-05-14 16:14] LABS: BACTERIA,URINE None Seen /HPF (None Seen); CASTS, URINE 6-10 Cellular Casts /LPF; RBC,URINE 0-5 /HPF (0-5); SQUAMOUS EPITHELIAL CELL,UR RARE Squamous (<= Few); WBC,URINE 0-3 /HPF (0-3)
--- NOTE | 2021-05-14 16:23 | HISTORY & PHYSICAL EXAMINATION ---
Chief Complaint - Chief Complaint Chief Complaint: Diarrhea History of Present Illness - Admitted From Admitted From:: Home via POV - History Obtained From Records Reviewed: [facility] History obtained from: Patient and Dr. Haro Exam Limitations: none - History of Present Illness HPI Comment/Other: Jeimy is a 70 year old male who is experiencing severe, uncontrollable diarrhea for one week. He denies any abdominal pain or bloody diarrhea. On 05/09 he presented to the walk in clinic with diarrhea and a fever of up to 102 for 2 days and was advised to go to the ED. There, he was treated with IV fluids. He was discharged with a diagnosis of viral gastroenteritis and was expected to improve in 1-2 days. Unfortunately, Jeimy presented to the ED again today, still experiencing violent diarrhea. He reports as many as 75 episodes of diarrhea over the last week. At first, the diarrhea was clear but in the last day or so it has become a darker brown color. He does not have an appetite and has only eaten 5 saltines since his diarrhea started. He has been drinking water, gatorade, and electrolyte drinks at home in an effort to replenish his fluids. He has lost 12 pounds in the last 7 days. He is getting up to use the bathroom nearly every 2 hours and is feeling exhausted. Jeimy is concerned that his will be worried about him until he figures out why this is happening and starts feeling better. Today his temperature is 36.9 C, pulse 112, respirations 16, BP 106/58, and O2% is 98%. Today, he is feeling the worst he has felt since this began one week ago. He is feeling fatigued, weak, and having great difficulty concentrating. He sometimes feels dizzy but denies syncope. He does not have a fever or chills. He has no sick contacts, no recent antibiotic use, no recent travel, and has not started any new medications. He occasionally eats canned pears that his makes. He did eat two sausage and egg sandwiches from [employer] last Friday between 7- 8am; his symptoms started that day at 1pm. He did a stool sample kit at home and is curious about the results; status is pending. His WBC is 18.6. Sodium is 132- 133. Potassium was 1.7 before potassium was added to his fluids. Now potassium is 2.7. 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 Today his platelets are at 845. He also has a history of asthma for which he uses fluticasone and beclamethasone inhalers. This is well-controlled. He also has a history of hypertension but cannot recall the name of the medication he takes. Jeimy is being admitted for observation of his dehydration and hypokalemia secondary to his diarrhea. History - Past Medical History Cardiovascular: reports: Hypertension Respiratory: reports: Asthma Neuro: reports: None Endocrine/Autoimmune: reports: None GI: reports: GERD : reports: Other (Acute epididymitis with sepsis) HEENT: reports: None Psych: reports: None Musculoskeletal: reports: Osteoarthritis Derm: reports: None, Other MRSA Hx?: Yes Other Past Medical History: Essential thrombocytosis - Past Surgical History General: reports: Hiatal hernia repair Ortho: reports: Shoulder arthroplasty /PICC NURSE: reports: Other - Family & Social History Family History: Mother: (Mom - multiple myeloma. Father - dementia), Father: , Mental Illness (PTSD, served in the army and was extremely withdrawn), Sister: Cancer (Breast cancer), Brother: Diabetes, Type 2 Family History Comment/Other: Brothers - Atrial fibrillation. One had a stroke at 64 and the other in his 30s. Living arrangement: At home Living Situation: With spouse/s.o. 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 He lives in [place] with his . His daughter is completing her medical residency in pediatrics. - Substance History Use: Uses substance without health or social issues: Alcohol (Rarely drinks, beer or wine occassionally) Abuse: Recurrent use of substance despite neg consequences: NONE - POLST Patient has POLST: No POLST Status: Full Code Meds/Allgy - Home Medications Home Medications: Ambulatory Orders Medication Instructions Recorded Confirmed Aspirin [Aspir 81] 81 mg PO DAILY 11/01/14 01/17/17 Hydroxyurea 1,500 mg PO DAILY 11/01/14 01/17/17 Omeprazole 20 mg PO DAILY 11/01/14 01/17/17 allopurinoL [Allopurinol] 300 mg PO DAILY 11/01/14 01/17/17 Beclomethasone 40 Mcg [Qvar 40] 2 puffs PO DAILY 11/21/16 01/17/17 Fluticasone [Flonase] 2 spray JESSI DAILY 11/21/16 01/17/17 Montelukast [Singulair] 10 mg PO DAILY 11/21/16 01/17/17 fluorouraciL [Fluorouracil] 30 gm TP DAILY 11/21/16 01/17/17 Tramadol HCl 50 mg PO Q6H PRN #20 tablet 01/17/17 Ondansetron Odt [Zofran] 4 mg TL Q6H PRN #10 tablet 05/09/21 - Allergies Allergies/Adverse Reactions: Allergies Allergy/AdvReac Type Severity Reaction Status Date / Time meperidine HCl * AdvReac Intermediate Hives Verified 05/14/21 12:26 [From Demerol] Penicillins AdvReac Intermediate Hives Verified 05/14/21 12:26 Review of Systems - Constitutional Constitutional: reports: Weakness, Poor appetite, Weight loss (12 pounds in 1 week). denies: Fever, Chills, Diaphoresis - Eyes Eyes: denies: Blurred vision, Vision loss - Ears, Nose & Throat Ears, Nose & Throat: denies: Hearing loss, Nasal congestion, Postnasal drainage, Sore throat - Cardiovascular Cariovascular: denies: Palpitations, Chest pain - Respiratory Respiratory: denies: Cough, Hemoptysis, SOB at rest - Gastrointestinal Gastrointestinal: reports: Diarrhea (more than 75 episodes in 1 week; was clear at first, now is more brown), Poor appetite. denies: Abdominal pain, Black stools, Bloody stools, Nausea, Vomiting, Reflux/heartburn - Musculoskeletal Musculoskeletal: reports: Muscle weakness - Integumentary Integumentary: denies: Rash - Neurological Neurological: reports: Dizziness, Other (Feeling so weak he is havin difficulty concentrating and thinking) - Psychiatric Psychiatric: denies: Depression Prior Level of Functionality: Completely independent with activities of daily living. 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 Does not use any durable medical equipment. Exam - Vital Signs Reviewed Vital Signs: Yes Vital Signs: Vital Signs x48h Temp Pulse Resp BP Pulse Ox 05/14/21 12:18 36.9 C 112 H 16 106/58 L 98 - Physical Exam General Appearance: positive: Alert, Other (Appears fatigued) Eyes Bilateral: positive: PERRL, EOMI ENT: negative: No signs of dehydration Neck: positive: No JVD. negative: Stiff neck Respiratory: positive: Breath sounds nml. negative: Wheezes, Rales, Rhonchi Cardiovascular: positive: Regular rate & rhythm, Tachycardia. negative: Gallop/S4, Friction rub Abdomen: positive: Non-tender, Abnml bowel sounds (Decreased bowel sounds; he has only eaten 5 saltines in the past week). negative: Guarding, Rebound Skin: positive: Warm, Dry. negative: Skin rash Extremities: positive: Non-tender. negative: Pedal edema Neurologic/Psychiatric: positive: Oriented x3, CN's nml (2-12) Conclusion/Plan - Problem List (1) Dehydration Conclusion/Plan: The patient is severely dehydrated from his violent, uncontrollable diarrhea that has been occurring for the past week. He was seen in the ED 05/09 and given IV fluids and discharged. Since then, his diarrhea has persisted and he is not able to correct his dehydration with PO fluids. Today in the ED, he was given fluids with potassium. We will continue to monitor him and give fluids overnight. Sodium is 132-133. He is tachycardic at 112 bpm. (2) Hypokalemia due to excessive gastrointestinal loss of potassium Due to his diarrhea, he is losing potassium rapidly. In the ER his potassium was 1.7. He was given PO potassium as well as IV fluids supplemented with potassium in the ED and his level increased to 2.7. We will continue replacing his fluids and replenishing the postassium he has lost. (3) Diarrhea Severe, uncontrollable diarrhea for 7 days. Initially had a fever for 2 days which has now subsided. His WBC are 18.6.Unclear if this is demargination from dehydration, reactive, or part of infection. The etiology of this diarrhea is perplexing due to its onset, severity, and length. He has no sick contacts, no recent antibiotic use, no recent travel, and no new medications. It seems most likely that this diarrhea is viral in origin. Stool sample is pending. We will continue to hydrate him. The antibiotics for now. (4) Essential thrombocytosis Receives care at [facility]. Well-managed on hydoxyurea. Will continue this medication during observation. (5) Asthma Asthma, well-controlled with fluticasone and beclamethasone inhalers. Will monitor. (6) Hypertension BP in the ER was 106/58. Most recently 135/70. Will monitor. - Lab Results Fish Bones: 05/14/21 13:03 05/14/21 15:40
[2021-05-14 16:36] LABS: B. PARAPERTUSSIS- RESP PCR PAN NOT DETECTED; B. PERTUSSIS- RESP PCR PANEL NOT DETECTED; C. PNEUMONIAE- RESP PCR PANEL NOT DETECTED; CORONAVIRUS 229E-RESP PCR NOT DETECTED; CORONAVIRUS HKU1-RESP PCR NOT DETECTED; CORONAVIRUS NL63-RESP PCR NOT DETECTED; CORONAVIRUS OC43-RESP PCR NOT DETECTED; HUMAN METAPNEUMOVIRUS NOT DETECTED; INFLUENZA A- RESP PCR PANEL NOT DETECTED; INFLUENZA B - RESP PCR PANEL NOT DETECTED; M. PNEUMONIAE- RESP PCR PANEL NOT DETECTED; PARAINFLUENZA VIRUS 1 NOT DETECTED; PARAINFLUENZA VIRUS 2 NOT DETECTED; PARAINFLUENZA VIRUS 3 NOT DETECTED; PARAINFLUENZA VIRUS 4 NOT DETECTED; RHINOVIRUS/ENTEROVIRUS NOT DETECTED; RSV- RESP PCR PANEL NOT DETECTED; SARS-CoV-2 -RESP PCR PANEL NOT DETECTED
[2021-05-14] MEDS: SODIUM CHLORIDE FLUSH 0.9% 10 ML SYRINGE IVP SCH ×2 (17:20→23:39)
--- NOTE | 2021-05-14 18:20 | PHARMACY PROGRESS NOTE ---
- Best Possible Medication History Admit Date and Time: 05/14/21 1521 Processed by: Pharmacy Medication History completed: Yes Patient Interview: Completed Secondary Source(s): Pharmacy records, Insurance records As the person ultimately responsible for medication therapy, providers are able to order a medication from an existing home medication list in [facility] via the "Reconcile Routine" prior to Confirmation of that medication by clinical support nurse. Such practice is discouraged except when the physician, in their clinical judgment, deems that a medical need exists for a medication without regard to previous use.
[2021-05-14] MEDS ORDERED: LACTATED RINGERS 1,000 ML IV SCH (19:00)
[2021-05-14 19:25] LABS: CALCIUM 7.9 mg/dL (8.5-10.3); CREATININE 0.9 mg/dL (0.6-1.2); POTASSIUM 2.6 mmol/L (3.5-5.0)
[2021-05-14] MEDS ORDERED: POTASSIUM CHLORIDE 20 MEQ TABLET PO ONE (19:35)
[2021-05-14] MEDS: HYDROXYUREA 500 MG CAPSULE PO SCH (20:20)
[2021-05-14] MEDS: LACTATED RINGERS 1,000 ML IV SCH ×2 (22:48→23:36)
[2021-05-15 05:42] LABS: BASOPHILS % (AUTO) 0.7 %; EOSINOPHILS % (AUTO) 1.8 %; HCT - HEMATOCRIT 34.1 % (42.0-52.0); HGB - HEMOGLOBIN 11.6 g/dL (14.0-18.0); LYMPHOCYTES % (AUTO) 6.5 %; MEAN CORPUSCULAR HEMOGLOBIN 37.3 pg (27.0-31.0); MEAN CORPUSCULAR VOLUME 109.6 fL (80.0-94.0); MEAN PLATELET VOLUME 9.4 fL (7.4-11.4); MONOCYTES % (AUTO) 8.6 %; NEUTROPHILS % (AUTO) 61.1 %; PLT - PLATELET COUNT 681 10^3/uL (130-450); RED BLOOD COUNT 3.11 10^6/uL (4.70-6.10); RED CELL DISTRIBUTION WIDTH 14.1 % (12.0-15.0); WHITE BLOOD COUNT 14.7 x10^3/uL (4.8-10.8)
[2021-05-15 05:52] LABS: CREATININE 0.9 mg/dL (0.6-1.2); POTASSIUM 2.6 mmol/L (3.5-5.0)
[2021-05-15 06:15] LABS: ABNORMAL LYMPHS % (MANUAL) 1 %; BAND NEUTROPHILS % (MANUAL) 5 %; EOSINOPHILS # (MANUAL) 0.6 10^3/uL (0-0.7); LYMPHOCYTES # (MANUAL) 1.6 10^3/uL (1.5-3.5); LYMPHOCYTES % (MANUAL) 9 %; METAMYELOCYTES % (MANUAL) 2 %; MONOCYTES # (MANUAL) 0.9 10^3/uL (0.0-1.0); NEUTROPHILS # (MANUAL) 11.3 10^3/uL (1.5-6.6); REACTIVE LYMPHS % (MANUAL) 1 %
[2021-05-15 06:16] LABS: DIFFERENTIAL COMMENT MANUAL DIFFERENTIAL; PLATELET ESTIMATE, MANUAL NORMAL (130-450,000) (NORMAL); PLATELET MORPHOLOGY 1+ LARGE PLATELETS (NORMAL); RBC MORPHOLOGY (MULTIPLE) 1+ MACROCYTOSIS (NORMAL); WBC MORPHOLOGY (MULTIPLE) NORMAL APPEARANCE (NORMAL)
[2021-05-15] MEDS ORDERED: POTASSIUM CHLORIDE 20 MEQ TABLET PO ONE (07:04)
[2021-05-15] MEDS: POTASSIUM CHLOR 10 MEQ/100 ML 10 MEQ/100 ML BAG IV SCH ×8 (08:13→21:20)
[2021-05-15] MEDS: LACTATED RINGERS 1,000 ML IV SCH ×2 (08:13→16:21)
--- NOTE | 2021-05-15 08:36 | PROVIDER PROGRESS NOTE ---
Assessment/Plan - Problem List (1) Gastroenteritis Assessment/Plan: WBCs today is 14.7. Patient reports diarrhea every hour. Patient's primary care physician by name Dr. Markos Kaur from [facility] called today with stool lab results positive for Shigella and enteroinvasive E. coli. As a result the patient was started on Cipro 500 mg p.o. twice daily. Anticipating improvement in patient's symptoms within 48 hours. (2) Diarrhea Assessment/Plan: Secondary to gastroenteritis due to Shigella and Enteroinvasive E. coli. Was started on Cipro 500 mg p.o. twice daily today. Continue IV hydration with lactated Ringer's at 125 mL/h. Anticipating improvement. (3) Dehydration Assessment/Plan: On lactated ringer at 125 mL/h. (4) Hypokalemia due to excessive gastrointestinal loss of potassium Assessment/Plan: Potassium today was 2.6. Potassium is being replaced with potassium chloride IV. We will recheck and continue replacing accordingly. - Current Meds Current Meds: Current Medications Generic Name Dose Route Start Last Admin Trade Name Dinesh PRN Reason Stop Dose Admin Hydroxyurea 500 mg 05/14/21 21:00 05/14/21 20:20 Hydroxyurea 500 Mg Capsule PO 500 mg [id number]@2100 SONI Administration Lactated Ringer's 1,000 mls @ 125 mls/hr 05/14/21 22:44 05/15/21 08:13 Lr IV 125 mls/hr .Q8H SONI Administration Potassium Chloride 10 meq in 100 mls @ 100 mls/hr 05/15/21 08:00 05/15/21 08:13 Potassium Chloride IV 05/15/21 11:59 100 mls/hr Q1H SONI Administration Sodium Chloride 10 ml 05/14/21 17:00 05/14/21 23:39 Sodium Chloride Flush 0.9% 10 Ml Syringe IVP Not Given 0100,0900,1700 SONI - Lab Result Fish Bone Diagrams: 05/15/21 05:30 05/15/21 05:30 - Additional Planning My Orders: My Active Orders 05/15/21 16:00 BMP - BASIC METABOLIC PANEL [CHEM] Timed Subjective - Subjective Patient Reports: Other (Patient was resting comfortably in bed at time of exam. He reported feeling worse today. He reports having diarrhea every hour. Rest of his history was unremarkable) Objective Vital Signs: Vital Signs - 24 hr 05/14/21 05/14/21 05/14/21 12:18 16:25 16:35 Temperature 36.9 C Heart Rate 112 H 108 H Heart Rate [ 91 Brachial] Respiratory 16 14 18 Rate Blood Pressure 106/58 L 104/64 Blood Pressure 135/70 H [Left Brachial artery] O2 Saturation 98 99 100 05/14/21 05/14/21 05/15/21 20:33 23:41 05:00 Temperature 36.7 C 36.7 C 36.4 C L Heart Rate Heart Rate [ 73 97 83 Brachial] Respiratory 16 16 20 Rate Blood Pressure Blood Pressure 142/70 H 115/64 127/66 [Left Brachial artery] O2 Saturation 95 99 93 05/15/21 07:29 Temperature 36.6 C Heart Rate Heart Rate [ 90 Brachial] Respiratory 20 Rate Blood Pressure Blood Pressure 126/71 [Left Brachial artery] O2 Saturation 97 Oxygen O2 Source Room air I&O (Last 24 Hrs): Intake and Output Totals x24h 05/13/21 05/14/21 05/15/21 23:59 23:59 23:59 Intake Total 3693.333 1100 Balance 3693.333 1100 General: Alert, Oriented x3, No acute distress HEENT: Atraumatic, PERRLA, EOMI Neck: Supple, No JVD Neuro: Alert, Oriented Times 3 Cardiovascular: Regular rate, Normal S1, Normal S2 Respiratory: Chest non-tender, No respiratory distress, Breath sounds nml Abdomen: Normal bowel sounds, Soft Extremities: No clubbing, No cyanosis, No edema Skin: No rashes, No breakdown, No significant lesion - Results Results: Laboratory Results WBC 14.7 x10^3/uL (4.8-10.8) H 05/15/21 05:30 RBC 3.11 10^6/uL (4.70-6.10) L 05/15/21 05:30 Hgb 11.6 g/dL (14.0-18.0) L 05/15/21 05:30 Hct 34.1 % (42.0-52.0) L 05/15/21 05:30 MCV 109.6 fL (80.0-94.0) H 05/15/21 05:30 MCH 37.3 pg (27.0-31.0) H 05/15/21 05:30 MCHC 34.0 g/dL (32.0-36.0) 05/15/21 05:30 RDW 14.1 % (12.0-15.0) 05/15/21 05:30 Plt Count 681 10^3/uL (130-450) H 05/15/21 05:30 MPV 9.4 fL (7.4-11.4) 05/15/21 05:30 Neut # (Auto) Not Reportable 05/15/21 05:30 Lymph # (Auto) Not Reportable 05/15/21 05:30 [place] # (Auto) Not Reportable 05/15/21 05:30 Eos # (Auto) Not Reportable 05/15/21 05:30 Baso # (Auto) Not Reportable 05/15/21 05:30 Absolute Nucleated RBC Not Reportable 05/15/21 05:30 Total Counted 100 05/15/21 05:30 Band Neuts % (Manual) 5 % (0-10) 05/15/21 05:30 Reactive Lymphs % (Man) 1 % 05/15/21 05:30 Abnorm Lymph % (Manual) 1 % 05/15/21 05:30 Metamyelocytes % 2 % (-0) H 05/15/21 05:30 Nucleated RBC % Not Reportable 05/15/21 05:30 Neutrophils # (Manual) 11.3 10^3/uL (1.5-6.6) H 05/15/21 05:30 Lymphocytes # (Manual) 1.6 10^3/uL (1.5-3.5) 05/15/21 05:30 Monocytes # (Manual) 0.9 10^3/uL (0.0-1.0) 05/15/21 05:30 Eosinophils # (Manual) 0.6 10^3/uL (0-0.7) 05/15/21 05:30 Basophils # (Manual) 0.0 10^3/uL (0-0.1) 05/15/21 05:30 Differential Comment MANUAL DIFFERENTIAL 05/15/21 05:30 WBC Morphology NORMAL APPEARANCE (NORMAL) 05/15/21 05:30 Platelet Estimate NORMAL (130-450,000) (NORMAL) 05/15/21 05:30 Platelet Morphology 1+ LARGE PLATELETS (NORMAL) 05/15/21 05:30 RBC Morph Micro Appear 1+ MACROCYTOSIS (NORMAL) 05/15/21 05:30 Sodium 131 mmol/L (135-145) L 05/15/21 05:30 Potassium 2.6 mmol/L (3.5-5.0) L 05/15/21 05:30 Chloride 100 mmol/L (101-111) L 05/15/21 05:30 Carbon Dioxide 21 mmol/L (21-32) 05/15/21 05:30 Anion Gap 10.0 (6-13) 05/15/21 05:30 BUN 16 mg/dL (6-20) 05/15/21 05:30 Creatinine 0.9 mg/dL (0.6-1.2) 05/15/21 05:30 Estimated GFR (MDRD) 83 (>89) L 05/15/21 05:30 Glucose 129 mg/dL (70-100) H 05/15/21 05:30 Calcium 8.0 mg/dL (8.5-10.3) L 05/15/21 05:30 Magnesium 2.0 mg/dL (1.7-2.8) 05/15/21 05:30 Total Bilirubin 1.2 mg/dL (0.2-1.0) H 05/14/21 13:03 AST 24 IU/L (10-42) 05/14/21 13:03 ALT 25 IU/L (10-60) 05/14/21 13:03 Alkaline Phosphatase 57 IU/L (42-121) 05/14/21 13:03 Total Protein 6.4 g/dL (6.7-8.2) L 05/14/21 13:03 Albumin 3.2 g/dL (3.2-5.5) 05/14/21 13:03 Globulin 3.2 g/dL (2.1-4.2) 05/14/21 13:03 Albumin/Globulin Ratio 1.0 (1.0-2.2) 05/14/21 13:03 Lipase 61 U/L (22-51) H 05/14/21 13:03 Urine Color DARK YELLOW 05/14/21 15:13 Urine Clarity CLEAR (CLEAR) 05/14/21 15:13 Urine pH 6.0 PH (5.0-7.5) 05/14/21 15:13 Ur Specific [place] 1.020 (1.002-1.030) 05/14/21 15:13 Urine Protein 30 mg/dL (NEGATIVE) H 05/14/21 15:13 Urine Glucose (UA) NEGATIVE mg/dL (NEGATIVE) 05/14/21 15:13 Urine Ketones >=80 mg/dL (NEGATIVE) H 05/14/21 15:13 Urine Occult Blood SMALL (NEGATIVE) H 05/14/21 15:13 Urine Nitrite NEGATIVE (NEGATIVE) 05/14/21 15:13 Urine Bilirubin NEGATIVE (NEGATIVE) 05/14/21 15:13 Urine Urobilinogen 0.2 (NORMAL) E.U./dL (NORMAL) 05/14/21 15:13 Ur Leukocyte Esterase NEGATIVE (NEGATIVE) 05/14/21 15:13 Urine RBC 0-5 /HPF (0-5) 05/14/21 15:13 Urine WBC 0-3 /HPF (0-3) 05/14/21 15:13 Ur Squamous Epith Cells RARE Squamous (<= Few) 05/14/21 15:13 Urine Bacteria None Seen /HPF (None Seen) 05/14/21 15:13 Urine Casts 6-10 Cellular Casts /LPF 05/14/21 15:13 Ur Microscopic Review INDICATED 05/14/21 15:13 Urine Culture Comments NOT INDICATED 05/14/21 15:13 Nasal Adenovirus (PCR) NOT DETECTED 05/14/21 14:40 Nasal B. parapertussis DNA (PCR) NOT DETECTED 05/14/21 14:40 Nasal Coronavir 229E PCR NOT DETECTED 05/14/21 14:40 Nasal Coronavir HKU1 PCR NOT DETECTED 05/14/21 14:40 Nasal Coronavir NL63 PCR NOT DETECTED 05/14/21 14:40 Nasal Coronavir OC43 PCR NOT DETECTED 05/14/21 14:40 Nasal Enterovir/Rhinovir PCR NOT DETECTED 05/14/21 14:40 Nasal Influenza B PCR NOT DETECTED 05/14/21 14:40 Nasal Influenza A PCR NOT DETECTED 05/14/21 14:40 Nasal Parainfluen 1 PCR NOT DETECTED 05/14/21 14:40 Nasal Parainfluen 2 PCR NOT DETECTED 05/14/21 14:40 Nasal Parainfluen 3 PCR NOT DETECTED 05/14/21 14:40 Nasal Parainfluen 4 PCR NOT DETECTED 05/14/21 14:40 Nasal RSV (PCR) NOT DETECTED 05/14/21 14:40 Nasal B.pertussis DNA PCR NOT DETECTED 05/14/21 14:40 Nasal C.pneumoniae (PCR) NOT DETECTED 05/14/21 14:40 [place] Human Metapneumo PCR NOT DETECTED 05/14/21 14:40 Nasal M.pneumoniae (PCR) NOT DETECTED 05/14/21 14:40 Nasal SARS-CoV-2 (PCR) NOT DETECTED 05/14/21 14:40 Slides for Path Review Indicated 05/14/21 13:03 - Procedures Procedures: Procedures REPLACEMENT OF RIGHT LENS WITH SYNTH SUB, PERC APPROACH (11/21/16) ABX Reporting Has patient been on IV antibiotics over the past 48 hours?: No
[2021-05-15] MEDS: SODIUM CHLORIDE FLUSH 0.9% 10 ML SYRINGE IVP SCH ×2 (09:26→16:22)
[2021-05-15] MEDS: ENOXAPARIN 40 MG/0.4 ML SYRINGE SUBQ SCH (09:29)
[2021-05-15] MEDS ORDERED: levoFLOXacin 500 MG/100 ML 500 MG/100 ML BAG IV SCH (10:00)
[2021-05-15] MEDS: CIPROFLOXACIN 250 MG TABLET PO SCH ×2 (10:40→21:04)
[2021-05-15] MEDS: HYDROXYUREA 500 MG CAPSULE PO SCH ×2 (10:41→21:05)
[2021-05-15 16:12] LABS: CREATININE 0.7 mg/dL (0.6-1.2); POTASSIUM 2.9 mmol/L (3.5-5.0)
[2021-05-15] MEDS ORDERED: guaiFENesin 100 MG/5 ML UDC PO PRN (19:39)
[2021-05-15] MEDS ORDERED: ALBUTEROL 6.7 GM INHALER INH PRN (19:49)
[2021-05-15] MEDS: MONTELUKAST 10 MG TABLET PO SCH (21:04)
[2021-05-16] MEDS: SODIUM CHLORIDE FLUSH 0.9% 10 ML SYRINGE IVP SCH ×3 (00:04→16:14)
[2021-05-16] MEDS: LACTATED RINGERS 1,000 ML IV SCH ×3 (00:17→17:57)
[2021-05-16 06:09] LABS: BASOPHILS % (AUTO) 0.5 %; HCT - HEMATOCRIT 34.6 % (42.0-52.0); HGB - HEMOGLOBIN 11.7 g/dL (14.0-18.0); LYMPHOCYTES % (AUTO) 7.4 %; MEAN CORPUSCULAR HGB CONC 33.8 g/dL (32.0-36.0); MEAN CORPUSCULAR VOLUME 112.3 fL (80.0-94.0); MEAN PLATELET VOLUME 9.4 fL (7.4-11.4); MONOCYTES % (AUTO) 4.2 %; PLT - PLATELET COUNT 757 10^3/uL (130-450); RED BLOOD COUNT 3.08 10^6/uL (4.70-6.10); RED CELL DISTRIBUTION WIDTH 14.6 % (12.0-15.0); WHITE BLOOD COUNT 23.1 x10^3/uL (4.8-10.8)
[2021-05-16 06:13] LABS: CREATININE 0.7 mg/dL (0.6-1.2); POTASSIUM 2.8 mmol/L (3.5-5.0)
[2021-05-16 06:14] LABS: ABNORMAL LYMPHS % (MANUAL) 0 %
--- NOTE | 2021-05-16 08:05 | PROVIDER PROGRESS NOTE ---
Assessment/Plan - Problem List (1) Gastroenteritis Assessment/Plan: WBCs today incread from 14.7 to 23.1. No significant improvement in diarrhea which is watery and greenish Patient's primary care physician by name Dr. Markos Kaur from [facility] called on 05/15/21 with PCR lab results positive for Shigella and enteroinvasive E. coli. To date the patient received 4 doses of Cipro 500 mg. Cipro was changed to 400 mg IV twice daily Anticipating improvement in patient's symptoms within 48 hours. (2) Diarrhea Assessment/Plan: Secondary to gastroenteritis due to Shigella and Enteroinvasive E. coli. On Cipro 400 mg IV twice daily Continue IV hydration with lactated Ringer's at 125 mL/h. Anticipating improvement. (3) Dehydration Assessment/Plan: On lactated ringer at 125 mL/h. (4) Hypokalemia due to excessive gastrointestinal loss of potassium Assessment/Plan: Potassium today was 2.8. Potassium is being replaced with potassium chloride IV. We will recheck and continue replacing accordingly. - Current Meds Current Meds: Current Medications Generic Name Dose Route Start Last Admin Trade Name Freq PRN Reason Stop Dose Admin Ciprofloxacin 500 mg 05/15/21 10:00 05/15/21 21:04 Ciprofloxacin 250 Mg Tablet PO 05/17/21 21:01 500 mg BID SONI Administration Enoxaparin Sodium 40 mg 05/15/21 09:00 05/15/21 09:29 Enoxaparin 40 Mg/0.4 Ml Syringe SUBQ 40 mg DAILY SONI Administration Guaifenesin 100 mg 05/15/21 19:39 05/15/21 21:04 Guaifenesin 100 Mg/5 Ml Udc PO 100 mg Q6HR PRN Administration Cough Hydroxyurea 1,000 mg 05/15/21 09:00 05/15/21 10:41 Hydroxyurea 500 Mg Capsule PO 1,000 mg DAILY SONI Administration Hydroxyurea 1,000 mg 05/15/21 21:00 05/15/21 21:05 Hydroxyurea 500 Mg Capsule PO 1,000 mg SuTuThSa@2100 SONI Administration Hydroxyurea 500 mg 05/14/21 21:00 05/14/21 20:20 Hydroxyurea 500 Mg Capsule PO 500 mg MoWeFr@2100 SONI Administration Lactated Ringer's 1,000 mls @ 125 mls/hr 05/14/21 22:44 05/16/21 00:17 Lr IV 125 mls/hr .Q8H SONI Administration Montelukast Sodium 10 mg 05/15/21 21:00 05/15/21 21:04 Montelukast 10 Mg Tablet PO 10 mg QPM SONI Administration Sodium Chloride 10 ml 05/14/21 17:00 05/16/21 00:04 Sodium Chloride Flush 0.9% 10 Ml Syringe IVP Not Given 0100,0900,1700 SONI - Lab Result Fish Bone Diagrams: 05/16/21 05:40 05/16/21 05:40 - Additional Planning My Orders: My Active Orders 05/15/21 10:00 Ciprofloxacin [Cipro] 500 mg PO BID 05/16/21 05:40 CBC - COMP BLD CT W/AUTO DIFF [HEME] DAILYLAB MANUAL DIFFERENTIAL [HEME] Routine 05/16/21 08:00 Potassium Chloride/Water 10 mEq/100 mL q1h (Enter # of bags) Potassium Chlor 10 Meq/100 ml [Potassium Chloride] 10 meq in 100 ml IV Q1H 05/17/21 05:00 CBC - COMP BLD CT W/AUTO DIFF [HEME] DAILYLAB 05/18/21 05:00 CBC - COMP BLD CT W/AUTO DIFF [HEME] DAILYLAB 05/19/21 05:00 CBC - COMP BLD CT W/AUTO DIFF [HEME] DAILYLAB 05/20/21 05:00 CBC - COMP BLD CT W/AUTO DIFF [HEME] DAILYLAB Subjective - Subjective Patient Reports: Other (Patient was resting comfortably in bed. He is diarrhea persists. Is a watery greenish stool White blood cell count today was 23. This was an increase from 14 yesterday. He remains afebrile and vitals are stable. Potassium was 2.8. He denies any other complaints) Objective Vital Signs: Vital Signs - 24 hr 05/15/21 05/15/21 05/15/21 13:00 15:59 19:16 Temperature 36.4 C L 36.9 C 36.7 C Heart Rate Heart Rate [ 81 80 81 Brachial] Respiratory 20 16 16 Rate Blood Pressure 129/68 118/66 126/75 [Left Brachial artery] O2 Saturation 96 96 100 05/15/21 05/16/21 05/16/21 20:55 00:17 06:00 Temperature 36.3 C L 36.3 C L Heart Rate 80 Heart Rate [ 82 88 Brachial] Respiratory 18 16 16 Rate Blood Pressure 111/66 145/73 H [Left Brachial artery] O2 Saturation 100 100 05/16/21 07:57 Temperature 36.4 C L Heart Rate Heart Rate [ 83 Brachial] Respiratory 18 Rate Blood Pressure 135/75 H [Left Brachial artery] O2 Saturation 97 Oxygen O2 Source Room air I&O (Last 24 Hrs): Intake and Output Totals x24h 05/14/21 05/15/21 05/16/21 23:59 23:59 23:59 Intake Total 3693.333 3140 1291.667 Balance 3693.333 3140 1291.667 General: Alert, Oriented x3, No acute distress HEENT: Atraumatic, PERRLA, EOMI Neck: Supple, No JVD Neuro: Alert, Oriented Times 3 Cardiovascular: Regular rate Respiratory: Chest non-tender, No respiratory distress, Breath sounds nml Abdomen: Soft, No tenderness Extremities: No clubbing, No cyanosis, No edema Skin: No rashes, No breakdown, No significant lesion - Results Results: Laboratory Results WBC 23.1 x10^3/uL (4.8-10.8) H 05/16/21 05:40 RBC 3.08 10^6/uL (4.70-6.10) L 05/16/21 05:40 Hgb 11.7 g/dL (14.0-18.0) L 05/16/21 05:40 Hct 34.6 % (42.0-52.0) L 05/16/21 05:40 MCV 112.3 fL (80.0-94.0) H 05/16/21 05:40 MCH 38.0 pg (27.0-31.0) H 05/16/21 05:40 MCHC 33.8 g/dL (32.0-36.0) 05/16/21 05:40 RDW 14.6 % (12.0-15.0) 05/16/21 05:40 Plt Count 757 10^3/uL (130-450) H 05/16/21 05:40 MPV 9.4 fL (7.4-11.4) 05/16/21 05:40 Neut # (Auto) Not Reportable 05/15/21 05:30 Lymph # (Auto) Not Reportable 05/15/21 05:30 [place] # (Auto) Not Reportable 05/15/21 05:30 Eos # (Auto) Not Reportable 05/15/21 05:30 Baso # (Auto) Not Reportable 05/15/21 05:30 Absolute Nucleated RBC Not Reportable 05/15/21 05:30 Total Counted 100 05/15/21 05:30 Band Neuts % (Manual) 5 % (0-10) 05/15/21 05:30 Reactive Lymphs % (Man) 1 % 05/15/21 05:30 Abnorm Lymph % (Manual) 1 % 05/15/21 05:30 Metamyelocytes % 2 % (-0) H 05/15/21 05:30 Nucleated RBC % Not Reportable 05/15/21 05:30 Neutrophils # (Manual) 11.3 10^3/uL (1.5-6.6) H 05/15/21 05:30 Lymphocytes # (Manual) 1.6 10^3/uL (1.5-3.5) 05/15/21 05:30 Monocytes # (Manual) 0.9 10^3/uL (0.0-1.0) 05/15/21 05:30 Eosinophils # (Manual) 0.6 10^3/uL (0-0.7) 05/15/21 05:30 Basophils # (Manual) 0.0 10^3/uL (0-0.1) 05/15/21 05:30 Differential Comment MANUAL DIFFERENTIAL 05/15/21 05:30 WBC Morphology NORMAL APPEARANCE (NORMAL) 05/15/21 05:30 Platelet Estimate NORMAL (130-450,000) (NORMAL) 05/15/21 05:30 Platelet Morphology 1+ LARGE PLATELETS (NORMAL) 05/15/21 05:30 RBC Morph Micro Appear 1+ MACROCYTOSIS (NORMAL) 05/15/21 05:30 Sodium 140 mmol/L (135-145) 05/16/21 05:40 Potassium 2.8 mmol/L (3.5-5.0) L 05/16/21 05:40 Chloride 107 mmol/L (101-111) 05/16/21 05:40 Carbon Dioxide 21 mmol/L (21-32) 05/16/21 05:40 Anion Gap 12.0 (6-13) 05/16/21 05:40 BUN 10 mg/dL (6-20) 05/16/21 05:40 Creatinine 0.7 mg/dL (0.6-1.2) 05/16/21 05:40 Estimated GFR (MDRD) 111 (>89) 05/16/21 05:40 Glucose 103 mg/dL (70-100) H 05/16/21 05:40 Calcium 9.0 mg/dL (8.5-10.3) 05/16/21 05:40 Magnesium 2.0 mg/dL (1.7-2.8) 05/16/21 05:40 Total Bilirubin 1.2 mg/dL (0.2-1.0) H 05/14/21 13:03 AST 24 IU/L (10-42) 05/14/21 13:03 ALT 25 IU/L (10-60) 05/14/21 13:03 Alkaline Phosphatase 57 IU/L (42-121) 05/14/21 13:03 Total Protein 6.4 g/dL (6.7-8.2) L 05/14/21 13:03 Albumin 3.2 g/dL (3.2-5.5) 05/14/21 13:03 Globulin 3.2 g/dL (2.1-4.2) 05/14/21 13:03 Albumin/Globulin Ratio 1.0 (1.0-2.2) 05/14/21 13:03 Lipase 61 U/L (22-51) H 05/14/21 13:03 Urine Color DARK YELLOW 05/14/21 15:13 Urine Clarity CLEAR (CLEAR) 05/14/21 15:13 Urine pH 6.0 PH (5.0-7.5) 05/14/21 15:13 Ur Specific [place] 1.020 (1.002-1.030) 05/14/21 15:13 Urine Protein 30 mg/dL (NEGATIVE) H 05/14/21 15:13 Urine Glucose (UA) NEGATIVE mg/dL (NEGATIVE) 05/14/21 15:13 Urine Ketones >=80 mg/dL (NEGATIVE) H 05/14/21 15:13 Urine Occult Blood SMALL (NEGATIVE) H 05/14/21 15:13 Urine Nitrite NEGATIVE (NEGATIVE) 05/14/21 15:13 Urine Bilirubin NEGATIVE (NEGATIVE) 05/14/21 15:13 Urine Urobilinogen 0.2 (NORMAL) E.U./dL (NORMAL) 05/14/21 15:13 Ur Leukocyte Esterase NEGATIVE (NEGATIVE) 05/14/21 15:13 Urine RBC 0-5 /HPF (0-5) 05/14/21 15:13 Urine WBC 0-3 /HPF (0-3) 05/14/21 15:13 Ur Squamous Epith Cells RARE Squamous (<= Few) 05/14/21 15:13 Urine Bacteria None Seen /HPF (None Seen) 05/14/21 15:13 Urine Casts 6-10 Cellular Casts /LPF 05/14/21 15:13 Ur Microscopic Review INDICATED 05/14/21 15:13 Urine Culture Comments NOT INDICATED 05/14/21 15:13 Nasal Adenovirus (PCR) NOT DETECTED 05/14/21 14:40 Nasal B. parapertussis DNA (PCR) NOT DETECTED 05/14/21 14:40 Nasal Coronavir 229E PCR NOT DETECTED 05/14/21 14:40 Nasal Coronavir HKU1 PCR NOT DETECTED 05/14/21 14:40 Nasal Coronavir NL63 PCR NOT DETECTED 05/14/21 14:40 Nasal Coronavir OC43 PCR NOT DETECTED 05/14/21 14:40 Nasal Enterovir/Rhinovir PCR NOT DETECTED 05/14/21 14:40 Nasal Influenza B PCR NOT DETECTED 05/14/21 14:40 Nasal Influenza A PCR NOT DETECTED 05/14/21 14:40 Nasal Parainfluen 1 PCR NOT DETECTED 05/14/21 14:40 Nasal Parainfluen 2 PCR NOT DETECTED 05/14/21 14:40 Nasal Parainfluen 3 PCR NOT DETECTED 05/14/21 14:40 Nasal Parainfluen 4 PCR NOT DETECTED 05/14/21 14:40 Nasal RSV (PCR) NOT DETECTED 05/14/21 14:40 Nasal B.pertussis DNA PCR NOT DETECTED 05/14/21 14:40 Nasal C.pneumoniae (PCR) NOT DETECTED 05/14/21 14:40 [place] Human Metapneumo PCR NOT DETECTED 05/14/21 14:40 Nasal M.pneumoniae (PCR) NOT DETECTED 05/14/21 14:40 Nasal SARS-CoV-2 (PCR) NOT DETECTED 05/14/21 14:40 Slides for Path Review Indicated 05/14/21 13:03 - Procedures Procedures: Procedures REPLACEMENT OF RIGHT LENS WITH SYNTH SUB, PERC APPROACH (11/21/16) ABX Reporting Has patient been on IV antibiotics over the past 48 hours?: No
[2021-05-16 08:14] LABS: BAND NEUTROPHILS % (MANUAL) 10 %; DIFFERENTIAL COMMENT MANUAL DIFFERENTIAL; EOSINOPHILS # (MANUAL) 0.7 10^3/uL (0-0.7); LYMPHOCYTES # (MANUAL) 1.8 10^3/uL (1.5-3.5); LYMPHOCYTES % (MANUAL) 8 %; METAMYELOCYTES % (MANUAL) 2 %; MONOCYTES # (MANUAL) 1.2 10^3/uL (0.0-1.0); NEUTROPHILS # (MANUAL) 18.9 10^3/uL (1.5-6.6); PLATELET ESTIMATE, MANUAL INCREASED (>450,000) (NORMAL); PLATELET MORPHOLOGY NORMAL APPEARANCE (NORMAL); RBC MORPHOLOGY (MULTIPLE) 1+ MACROCYTOSIS (NORMAL); WBC MORPHOLOGY (MULTIPLE) 1+ SMUDGE CELLS (NORMAL)
[2021-05-16] MEDS: ENOXAPARIN 40 MG/0.4 ML SYRINGE SUBQ SCH (08:56)
[2021-05-16] MEDS: CIPROFLOXACIN 250 MG TABLET PO SCH (08:57)
[2021-05-16] MEDS: POTASSIUM CHLOR 10 MEQ/100 ML 10 MEQ/100 ML BAG IV SCH ×4 (09:49→16:13)
[2021-05-16] MEDS: HYDROXYUREA 500 MG CAPSULE PO SCH ×2 (10:26→20:52)
[2021-05-16] MEDS ORDERED: POTASSIUM CHLOR 10 MEQ/100 ML 10 MEQ/100 ML BAG IV ONE (16:06)
[2021-05-16] MEDS ORDERED: CIPROFLOXACIN 400 MG/200 ML 400 MG/200 ML BAG IV ONE (17:00)
[2021-05-16] MEDS: CIPROFLOXACIN 400 MG/200 ML 400 MG/200 ML BAG IV SCH (18:55)
[2021-05-16] MEDS: metroNIDAZOLE 500 MG/100 ML 500 MG/100 ML BAG IV SCH (19:01)
[2021-05-16] MEDS: MONTELUKAST 10 MG TABLET PO SCH (20:52)
[2021-05-17] MEDS: SODIUM CHLORIDE FLUSH 0.9% 10 ML SYRINGE IVP SCH ×3 (00:29→16:43)
[2021-05-17] MEDS: metroNIDAZOLE 500 MG/100 ML 500 MG/100 ML BAG IV SCH ×3 (04:39→18:57)
[2021-05-17] MEDS: LACTATED RINGERS 1,000 ML IV SCH ×3 (05:30→21:42)
[2021-05-17 05:54] LABS: BASOPHILS % (AUTO) 0.8 %; EOSINOPHILS % (AUTO) 0.9 %; HCT - HEMATOCRIT 32.2 % (42.0-52.0); HGB - HEMOGLOBIN 10.9 g/dL (14.0-18.0); LYMPHOCYTES % (AUTO) 5.1 %; MEAN CORPUSCULAR HEMOGLOBIN 38.2 pg (27.0-31.0); MEAN CORPUSCULAR HGB CONC 33.9 g/dL (32.0-36.0); MONOCYTES % (AUTO) 3.5 %; NEUTROPHILS % (AUTO) 64.8 %; PLT - PLATELET COUNT 784 10^3/uL (130-450); RED BLOOD COUNT 2.85 10^6/uL (4.70-6.10); RED CELL DISTRIBUTION WIDTH 14.3 % (12.0-15.0)
[2021-05-17 06:00] LABS: CALCIUM 8.2 mg/dL (8.5-10.3); CREATININE 0.7 mg/dL (0.6-1.2); MAGNESIUM 1.7 mg/dL (1.7-2.8); POTASSIUM 2.8 mmol/L (3.5-5.0)
[2021-05-17 06:03] LABS: ABNORMAL LYMPHS % (MANUAL) 0 %
[2021-05-17 06:26] LABS: BAND NEUTROPHILS % (MANUAL) 13 %; LYMPHOCYTES # (MANUAL) 2.1 10^3/uL (1.5-3.5); LYMPHOCYTES % (MANUAL) 10 %; METAMYELOCYTES % (MANUAL) 4 %; MONOCYTES # (MANUAL) 0.6 10^3/uL (0.0-1.0); MYELOCYTES % (MANUAL) 5 %; NEUTROPHILS # (MANUAL) 16.4 10^3/uL (1.5-6.6); PLATELET ESTIMATE, MANUAL INCREASED (>450,000) (NORMAL); RBC MORPHOLOGY (MULTIPLE) NORMAL APPEARANCE (NORMAL)
[2021-05-17 06:27] LABS: DIFFERENTIAL COMMENT MANUAL DIFFERENTIAL
--- NOTE | 2021-05-17 07:13 | PROVIDER PROGRESS NOTE ---
Assessment/Plan - Problem List (1) Gastroenteritis Assessment/Plan: WBCs today decreased from 23.1 to 21. No significant improvement in diarrhea which is watery and greenish Patient's primary care physician by name Dr. Markos Kaur from [facility] called on 05/15/21 with PCR lab results positive for Shigella and enteroinvasive E. coli. Cipro was changed to 400 mg IV twice daily on 05/16/21 evening On Flagyl 500mg IV tid C.diff test was negative He is afebrile with stable BP I spoke with Infectious Disease via [facility] line He recommended Ceftriaxone if no improvement on Cipro IV. We will switch antibiotic if no change in 24-48 hours (3) Dehydration Assessment/Plan: Secondary to gastroenteritis due to Shigella and Enteroinvasive E. coli. On Cipro 400 mg IV twice daily Continue IV hydration with lactated Ringer's at 125 mL/h. (4) Hypokalemia due to excessive gastrointestinal loss of potassium Assessment/Plan: Potassium today was 2.8. Potassium is being replaced with potassium chloride IV. We will recheck and continue replacing accordingly. Patient also given 2g Magnesium sulphate IV for a Mg level of 1.7 - Current Meds Current Meds: Current Medications Generic Name Dose Route Start Last Admin Trade Name Freq PRN Reason Stop Dose Admin Albuterol 2 puffs 05/15/21 19:49 05/16/21 10:20 Albuterol 6.7 Gm Inhaler INH 2 puffs Q4HR PRN Administration Shortness of Air/Wheezing Enoxaparin Sodium 40 mg 05/15/21 09:00 05/16/21 08:56 Enoxaparin 40 Mg/0.4 Ml Syringe SUBQ 40 mg DAILY SONI Administration Guaifenesin 100 mg 05/15/21 19:39 05/15/21 21:04 Guaifenesin 100 Mg/5 Ml Udc PO 100 mg Q6HR PRN Administration Cough Hydroxyurea 1,000 mg 05/15/21 09:00 05/16/21 10:26 Hydroxyurea 500 Mg Capsule PO 1,000 mg DAILY SONI Administration Hydroxyurea 1,000 mg 05/15/21 21:00 05/15/21 21:05 Hydroxyurea 500 Mg Capsule PO 1,000 mg SuTuThSa@2100 SONI Administration Hydroxyurea 500 mg 05/14/21 21:00 05/16/21 20:52 Hydroxyurea 500 Mg Capsule PO 500 mg MoWeFr@2100 SONI Administration Lactated Ringer's 1,000 mls @ 125 mls/hr 05/14/21 22:44 05/17/21 05:30 Lr IV 125 mls/hr .Q8H SONI Administration Ciprofloxacin 400 mg in 200 mls @ 200 mls/hr 05/16/21 21:00 05/16/21 18:55 Cipro 400 Mg/200 Ml IV 05/20/21 20:59 Not Given Q12H SONI Metronidazole 500 mg in 100 mls @ 100 mls/hr 05/16/21 19:00 05/17/21 04:39 Flagyl 500 Mg/100 Ml IV Not Given Q8H SONI Montelukast Sodium 10 mg 05/15/21 21:00 05/16/21 20:52 Montelukast 10 Mg Tablet PO 10 mg QPM SONI Administration Sodium Chloride 10 ml 05/14/21 17:00 05/17/21 00:29 Sodium Chloride Flush 0.9% 10 Ml Syringe IVP Not Given 0100,0900,1700 SONI - Lab Result Fish Bone Diagrams: 05/17/21 05:30 05/17/21 05:30 - Additional Planning My Orders: My Active Orders 05/16/21 19:00 metroNIDAZOLE 500 MG/100 ML [Flagyl 500 mg/100 ml] 500 mg in 100 ml IV Q8H 05/16/21 21:00 Ciprofloxacin 400 mg/200 ml [Cipro 400 mg/200 ml] 400 mg in 200 ml IV Q12H 05/17/21 07:10 MAGNESIUM [CHEM] Stat 05/17/21 08:00 Potassium Chloride/Water 10 mEq/100 mL q1h (Enter # of bags) Potassium Chlor 10 Meq/100 ml [Potassium Chloride] 10 meq in 100 ml IV Q1H 05/18/21 05:00 CBC - COMP BLD CT W/AUTO DIFF [HEME] DAILYLAB 05/19/21 05:00 CBC - COMP BLD CT W/AUTO DIFF [HEME] DAILYLAB 05/20/21 05:00 CBC - COMP BLD CT W/AUTO DIFF [HEME] DAILYLAB Subjective - Subjective Patient Reports: Other (Patient continues to have frequent watery stools. He reports mild abdominal cramps when he tries to sit up. He remains afebrile, with stable vitals. He continues on clear liquid diet.) Objective Vital Signs: Vital Signs - 24 hr 05/16/21 05/16/21 05/16/21 07:57 10:15 13:32 Temperature 36.4 C L 36.4 C L Heart Rate 84 Heart Rate [ 83 81 Brachial] Heart Rate [ Monitoring electrodes] Respiratory 18 12 16 Rate Blood Pressure 135/75 H 121/62 [Left Brachial artery] Blood Pressure [Right Brachial artery] O2 Saturation 97 96 05/16/21 05/16/21 05/17/21 16:11 21:00 00:51 Temperature 36.3 C L 36.3 C L 36.4 C L Heart Rate Heart Rate [ 94 92 78 Brachial] Heart Rate [ Monitoring electrodes] Respiratory 16 12 16 Rate Blood Pressure 145/72 H [Left Brachial artery] Blood Pressure 138/78 H 133/71 H [Right Brachial artery] O2 Saturation 94 98 97 05/17/21 05:00 Temperature 36.3 C L Heart Rate Heart Rate [ Brachial] Heart Rate [ 80 Monitoring electrodes] Respiratory 16 Rate Blood Pressure [Left Brachial artery] Blood Pressure 147/74 H [Right Brachial artery] O2 Saturation 96 Oxygen O2 Source Room air I&O (Last 24 Hrs): Intake and Output Totals x24h 05/15/21 05/16/21 05/17/21 23:59 23:59 23:59 Intake Total 3140 4891.667 1400 Balance 3140 4891.667 1400 General: Alert, Oriented x3, Mild distress HEENT: PERRLA, EOMI Neck: Supple, No JVD Neuro: Alert, Oriented Times 3 Cardiovascular: Regular rate, Normal S1, Normal S2 Respiratory: Chest non-tender, No respiratory distress, Breath sounds nml Abdomen: Normal bowel sounds, Soft, No tenderness Extremities: No clubbing, No cyanosis, No edema Skin: No rashes - Results Results: Laboratory Results WBC 21.0 x10^3/uL (4.8-10.8) H 05/17/21 05:30 RBC 2.85 10^6/uL (4.70-6.10) L 05/17/21 05:30 Hgb 10.9 g/dL (14.0-18.0) L 05/17/21 05:30 Hct 32.2 % (42.0-52.0) L 05/17/21 05:30 MCV 113.0 fL (80.0-94.0) H 05/17/21 05:30 MCH 38.2 pg (27.0-31.0) H 05/17/21 05:30 MCHC 33.9 g/dL (32.0-36.0) 05/17/21 05:30 RDW 14.3 % (12.0-15.0) 05/17/21 05:30 Plt Count 784 10^3/uL (130-450) H 05/17/21 05:30 MPV 9.0 fL (7.4-11.4) 05/17/21 05:30 Neut # (Auto) Not Reportable 05/17/21 05:30 Lymph # (Auto) Not Reportable 05/17/21 05:30 [place] # (Auto) Not Reportable 05/17/21 05:30 Eos # (Auto) Not Reportable 05/17/21 05:30 Baso # (Auto) Not Reportable 05/17/21 05:30 Absolute Nucleated RBC Not Reportable 05/17/21 05:30 Total Counted 100 05/17/21 05:30 Band Neuts % (Manual) 13 % (0-10) H 05/17/21 05:30 Reactive Lymphs % (Man) 1 % 05/15/21 05:30 Abnorm Lymph % (Manual) 0 % 05/17/21 05:30 Metamyelocytes % 4 % (-0) H 05/17/21 05:30 Myelocytes % 5 % (-0) H 05/17/21 05:30 Nucleated RBC % Not Reportable 05/17/21 05:30 Neutrophils # (Manual) 16.4 10^3/uL (1.5-6.6) H 05/17/21 05:30 Lymphocytes # (Manual) 2.1 10^3/uL (1.5-3.5) 05/17/21 05:30 Monocytes # (Manual) 0.6 10^3/uL (0.0-1.0) 05/17/21 05:30 Eosinophils # (Manual) 0.0 10^3/uL (0-0.7) 05/17/21 05:30 Basophils # (Manual) 0.0 10^3/uL (0-0.1) 05/17/21 05:30 Differential Comment MANUAL DIFFERENTIAL 05/17/21 05:30 WBC Morphology 1+ SMUDGE CELLS (NORMAL) 05/16/21 05:40 Platelet Estimate INCREASED (>450,000) (NORMAL) 05/17/21 05:30 Platelet Morphology NORMAL APPEARANCE (NORMAL) 05/16/21 05:40 RBC Morph Micro Appear NORMAL APPEARANCE (NORMAL) 05/17/21 05:30 Sodium 141 mmol/L (135-145) 05/17/21 05:30 Potassium 2.8 mmol/L (3.5-5.0) L 05/17/21 05:30 Chloride 105 mmol/L (101-111) 05/17/21 05:30 Carbon Dioxide 24 mmol/L (21-32) 05/17/21 05:30 Anion Gap 12.0 (6-13) 05/17/21 05:30 BUN 7 mg/dL (6-20) 05/17/21 05:30 Creatinine 0.7 mg/dL (0.6-1.2) 05/17/21 05:30 Estimated GFR (MDRD) 111 (>89) 05/17/21 05:30 Glucose 111 mg/dL (70-100) H 05/17/21 05:30 Calcium 8.2 mg/dL (8.5-10.3) L 05/17/21 05:30 Magnesium 1.7 mg/dL (1.7-2.8) 05/17/21 05:30 Total Bilirubin 1.2 mg/dL (0.2-1.0) H 05/14/21 13:03 AST 24 IU/L (10-42) 05/14/21 13:03 ALT 25 IU/L (10-60) 05/14/21 13:03 Alkaline Phosphatase 57 IU/L (42-121) 05/14/21 13:03 Total Protein 6.4 g/dL (6.7-8.2) L 05/14/21 13:03 Albumin 3.2 g/dL (3.2-5.5) 05/14/21 13:03 Globulin 3.2 g/dL (2.1-4.2) 05/14/21 13:03 Albumin/Globulin Ratio 1.0 (1.0-2.2) 05/14/21 13:03 Lipase 61 U/L (22-51) H 05/14/21 13:03 Urine Color DARK YELLOW 05/14/21 15:13 Urine Clarity CLEAR (CLEAR) 05/14/21 15:13 Urine pH 6.0 PH (5.0-7.5) 05/14/21 15:13 Ur Specific [place] 1.020 (1.002-1.030) 05/14/21 15:13 Urine Protein 30 mg/dL (NEGATIVE) H 05/14/21 15:13 Urine Glucose (UA) NEGATIVE mg/dL (NEGATIVE) 05/14/21 15:13 Urine Ketones >=80 mg/dL (NEGATIVE) H 05/14/21 15:13 Urine Occult Blood SMALL (NEGATIVE) H 05/14/21 15:13 Urine Nitrite NEGATIVE (NEGATIVE) 05/14/21 15:13 Urine Bilirubin NEGATIVE (NEGATIVE) 05/14/21 15:13 Urine Urobilinogen 0.2 (NORMAL) E.U./dL (NORMAL) 05/14/21 15:13 Ur Leukocyte Esterase NEGATIVE (NEGATIVE) 05/14/21 15:13 Urine RBC 0-5 /HPF (0-5) 05/14/21 15:13 Urine WBC 0-3 /HPF (0-3) 05/14/21 15:13 Ur Squamous Epith Cells RARE Squamous (<= Few) 05/14/21 15:13 Urine Bacteria None Seen /HPF (None Seen) 05/14/21 15:13 Urine Casts 6-10 Cellular Casts /LPF 05/14/21 15:13 Ur Microscopic Review INDICATED 05/14/21 15:13 Urine Culture Comments NOT INDICATED 05/14/21 15:13 Nasal Adenovirus (PCR) NOT DETECTED 05/14/21 14:40 Nasal B. parapertussis DNA (PCR) NOT DETECTED 05/14/21 14:40 Nasal Coronavir 229E PCR NOT DETECTED 05/14/21 14:40 Nasal Coronavir HKU1 PCR NOT DETECTED 05/14/21 14:40 Nasal Coronavir NL63 PCR NOT DETECTED 05/14/21 14:40 Nasal Coronavir OC43 PCR NOT DETECTED 05/14/21 14:40 Nasal Enterovir/Rhinovir PCR NOT DETECTED 05/14/21 14:40 Nasal Influenza B PCR NOT DETECTED 05/14/21 14:40 Nasal Influenza A PCR NOT DETECTED 05/14/21 14:40 Nasal Parainfluen 1 PCR NOT DETECTED 05/14/21 14:40 Nasal Parainfluen 2 PCR NOT DETECTED 05/14/21 14:40 Nasal Parainfluen 3 PCR NOT DETECTED 05/14/21 14:40 Nasal Parainfluen 4 PCR NOT DETECTED 05/14/21 14:40 Nasal RSV (PCR) NOT DETECTED 05/14/21 14:40 Nasal B.pertussis DNA PCR NOT DETECTED 05/14/21 14:40 Nasal C.pneumoniae (PCR) NOT DETECTED 05/14/21 14:40 [place] Human Metapneumo PCR NOT DETECTED 05/14/21 14:40 Nasal M.pneumoniae (PCR) NOT DETECTED 05/14/21 14:40 Nasal SARS-CoV-2 (PCR) NOT DETECTED 05/14/21 14:40 Stl C. diff Tox B Gene NEGATIVE (NEGATIVE) 05/16/21 19:40 Slides for Path Review Indicated 05/14/21 13:03 - Procedures Procedures: Procedures REPLACEMENT OF RIGHT LENS WITH SYNTH SUB, PERC APPROACH (11/21/16) ABX Reporting Has patient been on IV antibiotics over the past 48 hours?: Yes
[2021-05-17] MEDS ORDERED: MAGNESIUM SULFATE 2 GRAM 2 GM/50 ML BAG IV ONE (07:18)
[2021-05-17] MEDS: BUDESONIDE 0.5 MG/2 ML NEB INH SCH ×3 (07:40→22:29)
[2021-05-17] MEDS: ENOXAPARIN 40 MG/0.4 ML SYRINGE SUBQ SCH (08:35)
[2021-05-17] MEDS: HYDROXYUREA 500 MG CAPSULE PO SCH ×2 (08:37→21:29)
[2021-05-17] MEDS: POTASSIUM CHLOR 10 MEQ/100 ML 10 MEQ/100 ML BAG IV SCH ×7 (08:38→23:47)
[2021-05-17] MEDS: CIPROFLOXACIN 400 MG/200 ML 400 MG/200 ML BAG IV SCH ×2 (08:39→21:28)
[2021-05-17 14:14] LABS: PATHOLOGIST SLIDE COMMENTS SEE SEPARATE REPORT
[2021-05-17] MEDS ORDERED: ALBUTEROL INH PRN (16:04)
[2021-05-17] MEDS: MONTELUKAST 10 MG TABLET PO SCH (21:29)
[2021-05-17] MEDS: [UNRECOGNIZED DRUG - OTHER] INH SCH (22:27)
[2021-05-17] MEDS: BECLOMETHASONE INH SCH (22:27)
[2021-05-18] MEDS: POTASSIUM CHLOR 10 MEQ/100 ML 10 MEQ/100 ML BAG IV SCH ×5 (00:47→14:19)
[2021-05-18] MEDS: metroNIDAZOLE 500 MG/100 ML 500 MG/100 ML BAG IV SCH ×3 (03:31→18:33)
[2021-05-18] MEDS: LACTATED RINGERS 1,000 ML IV SCH ×3 (05:40→20:38)
[2021-05-18] MEDS: SODIUM CHLORIDE FLUSH 0.9% 10 ML SYRINGE IVP SCH ×3 (05:41→17:19)
--- NOTE | 2021-05-18 07:31 | PROVIDER PROGRESS NOTE ---
Assessment/Plan - Problem List (1) Gastroenteritis Assessment/Plan: WBC today decreased from 21 to 16. There is slight decrease in the frequency of patient's bowel movements. We will continue Cipro 400 mg IV twice daily and Flagyl 500 mg IV 3 times daily. Advancing diet as tolerated. We will initiate a probiotic today. (2) Diarrhea Assessment/Plan: Secondary to gastroenteritis due to Shigella and Enteroinvasive E. coli. On Cipro 400 mg IV twice daily and Flagyl 500 mg IV 3 times daily Continue IV hydration with lactated Ringer's at 125 mL/h. (3) Dehydration Assessment/Plan: Secondary to gastroenteritis due to Shigella and Enteroinvasive E. coli. On Cipro 400 mg IV twice daily Continue IV hydration with lactated Ringer's at 125 mL/h. (4) Hypokalemia due to excessive gastrointestinal loss of potassium Assessment/Plan: Improving. Potassium today was 3.0. Potassium is being replaced with potassium chloride IV. We will recheck and continue replacing accordingly. - Current Meds Current Meds: Current Medications Generic Name Dose Route Start Last Admin Trade Name Freq PRN Reason Stop Dose Admin Albuterol 2 puffs 05/15/21 19:49 05/16/21 10:20 Albuterol 6.7 Gm Inhaler INH 2 puffs Q4HR PRN Administration Shortness of Air/Wheezing Beclomethasone Dipropionate 2 puffs 05/17/21 21:00 05/17/21 22:27 Pt Own Med- QvarBeclomethasone 80 Mcg Inhaler INH 2 % BID SONI Administration Budesonide 0.5 mg 05/16/21 19:00 05/17/21 22:29 Budesonide 0.5 Mg/2 Ml Neb INH Not Given RTBID SONI Enoxaparin Sodium 40 mg 05/15/21 09:00 05/17/21 08:35 Enoxaparin 40 Mg/0.4 Ml Syringe SUBQ 40 mg DAILY SONI Administration Guaifenesin 100 mg 05/15/21 19:39 05/15/21 21:04 Guaifenesin 100 Mg/5 Ml Udc PO 100 mg Q6HR PRN Administration Cough Hydroxyurea 1,000 mg 05/15/21 09:00 05/17/21 08:37 Hydroxyurea 500 Mg Capsule PO 1,000 mg DAILY SONI Administration Hydroxyurea 1,000 mg 05/15/21 21:00 05/17/21 21:29 Hydroxyurea 500 Mg Capsule PO 1,000 mg SuTuThSa@2100 SONI Administration Hydroxyurea 500 mg 05/14/21 21:00 05/16/21 20:52 Hydroxyurea 500 Mg Capsule PO 500 mg MoWeFr@2100 SONI Administration Lactated Ringer's 1,000 mls @ 125 mls/hr 05/14/21 22:44 05/18/21 05:40 Lr IV 125 mls/hr .Q8H SONI Administration Ciprofloxacin 400 mg in 200 mls @ 200 mls/hr 05/16/21 21:00 05/17/21 22:37 Cipro 400 Mg/200 Ml IV 05/20/21 20:59 Infused Q12H SONI Infusion Metronidazole 500 mg in 100 mls @ 100 mls/hr 05/16/21 19:00 05/18/21 05:59 Flagyl 500 Mg/100 Ml IV Infused Q8H SONI Infusion Montelukast Sodium 10 mg 05/15/21 21:00 05/17/21 21:29 Montelukast 10 Mg Tablet PO 10 mg QPM SONI Administration Sodium Chloride 10 ml 05/14/21 17:00 05/18/21 05:41 Sodium Chloride Flush 0.9% 10 Ml Syringe IVP Not Given 0100,0900,1700 SONI - Lab Result Fish Bone Diagrams: 05/18/21 07:27 05/18/21 07:27 - Additional Planning My Orders: My Active Orders 05/17/21 16:04 Albuterol [Ventolin Hfa] 2 puffs INH Q6H PRN 05/17/21 21:00 Beclomethasone 80 Mcg [Qvar 80] 2 puffs INH BID 05/18/21 05:00 CBC - COMP BLD CT W/AUTO DIFF [HEME] DAILYLAB 05/18/21 07:28 BMP - BASIC METABOLIC PANEL [CHEM] Stat 05/19/21 05:00 BMP - BASIC METABOLIC PANEL [CHEM] DAILYLAB CBC - COMP BLD CT W/AUTO DIFF [HEME] DAILYLAB 05/20/21 05:00 BMP - BASIC METABOLIC PANEL [CHEM] DAILYLAB CBC - COMP BLD CT W/AUTO DIFF [HEME] DAILYLAB 05/21/21 05:00 BMP - BASIC METABOLIC PANEL [CHEM] DAILYLAB 05/22/21 05:00 BMP - BASIC METABOLIC PANEL [CHEM] DAILYLAB 05/23/21 05:00 BMP - BASIC METABOLIC PANEL [CHEM] DAILYLAB Subjective - Subjective Patient Reports: Other (Resting in bed at time of exam. The frequency of his stools have decreased but continues to be watery. He is afebrile and does not have abdominal pain. White count improved from 21 yesterday to 16 today.) Objective Vital Signs: Vital Signs - 24 hr 05/17/21 05/17/21 05/17/21 08:49 13:00 15:40 Temperature 36.2 C L 36.4 C L 36.4 C L Heart Rate [ 85 107 H 92 Brachial] Heart Rate [ Monitoring electrodes] Respiratory 20 20 16 Rate Blood Pressure 130/82 H [Left Brachial artery] Blood Pressure 134/80 H 131/77 H [Right Brachial artery] O2 Saturation 95 98 94 05/17/21 05/18/21 05/18/21 21:00 00:59 05:00 Temperature 36.4 C L 36.3 C L 36.4 C L Heart Rate [ 83 Brachial] Heart Rate [ 84 79 Monitoring electrodes] Respiratory 20 18 18 Rate Blood Pressure [Left Brachial artery] Blood Pressure 141/78 H 128/77 141/76 H [Right Brachial artery] O2 Saturation 97 94 95 Oxygen O2 Source Room air I&O (Last 24 Hrs): Intake and Output Totals x24h 05/16/21 05/17/21 05/18/21 23:59 23:59 23:59 Intake Total 4891.667 5349.583 1295.833 Output Total 8 Balance 4891.667 5341.583 1295.833 General: Alert, Oriented x3, No acute distress HEENT: PERRLA, EOMI Neck: Supple, No JVD Neuro: Alert, Oriented Times 3 Cardiovascular: Regular rate Respiratory: Chest non-tender, No respiratory distress, Breath sounds nml Abdomen: Normal bowel sounds, Soft, No tenderness Extremities: No clubbing, No cyanosis, No edema, No tenderness/swelling Skin: No rashes, No breakdown, No significant lesion - Results Results: Laboratory Results WBC 21.0 x10^3/uL (4.8-10.8) H 05/17/21 05:30 RBC 2.85 10^6/uL (4.70-6.10) L 05/17/21 05:30 Hgb 10.9 g/dL (14.0-18.0) L 05/17/21 05:30 Hct 32.2 % (42.0-52.0) L 05/17/21 05:30 MCV 113.0 fL (80.0-94.0) H 05/17/21 05:30 MCH 38.2 pg (27.0-31.0) H 05/17/21 05:30 MCHC 33.9 g/dL (32.0-36.0) 05/17/21 05:30 RDW 14.3 % (12.0-15.0) 05/17/21 05:30 Plt Count 784 10^3/uL (130-450) H 05/17/21 05:30 MPV 9.0 fL (7.4-11.4) 05/17/21 05:30 Neut # (Auto) Not Reportable 05/17/21 05:30 Lymph # (Auto) Not Reportable 05/17/21 05:30 [place] # (Auto) Not Reportable 05/17/21 05:30 Eos # (Auto) Not Reportable 05/17/21 05:30 Baso # (Auto) Not Reportable 05/17/21 05:30 Absolute Nucleated RBC Not Reportable 05/17/21 05:30 Total Counted 100 05/17/21 05:30 Band Neuts % (Manual) 13 % (0-10) H 05/17/21 05:30 Reactive Lymphs % (Man) 1 % 05/15/21 05:30 Abnorm Lymph % (Manual) 0 % 05/17/21 05:30 Metamyelocytes % 4 % (-0) H 05/17/21 05:30 Myelocytes % 5 % (-0) H 05/17/21 05:30 Nucleated RBC % Not Reportable 05/17/21 05:30 Neutrophils # (Manual) 16.4 10^3/uL (1.5-6.6) H 05/17/21 05:30 Lymphocytes # (Manual) 2.1 10^3/uL (1.5-3.5) 05/17/21 05:30 Monocytes # (Manual) 0.6 10^3/uL (0.0-1.0) 05/17/21 05:30 Eosinophils # (Manual) 0.0 10^3/uL (0-0.7) 05/17/21 05:30 Basophils # (Manual) 0.0 10^3/uL (0-0.1) 05/17/21 05:30 Differential Comment MANUAL DIFFERENTIAL 05/17/21 05:30 WBC Morphology 1+ SMUDGE CELLS (NORMAL) 05/16/21 05:40 Platelet Estimate INCREASED (>450,000) (NORMAL) 05/17/21 05:30 Platelet Morphology NORMAL APPEARANCE (NORMAL) 05/16/21 05:40 RBC Morph Micro Appear NORMAL APPEARANCE (NORMAL) 05/17/21 05:30 Smear Path Review SEE SEPARATE REPORT 05/14/21 13:50 Sodium 141 mmol/L (135-145) 05/17/21 05:30 Potassium 2.8 mmol/L (3.5-5.0) L 05/17/21 05:30 Chloride 105 mmol/L (101-111) 05/17/21 05:30 Carbon Dioxide 24 mmol/L (21-32) 05/17/21 05:30 Anion Gap 12.0 (6-13) 05/17/21 05:30 BUN 7 mg/dL (6-20) 05/17/21 05:30 Creatinine 0.7 mg/dL (0.6-1.2) 05/17/21 05:30 Estimated GFR (MDRD) 111 (>89) 05/17/21 05:30 Glucose 111 mg/dL (70-100) H 05/17/21 05:30 Calcium 8.2 mg/dL (8.5-10.3) L 05/17/21 05:30 Magnesium 1.7 mg/dL (1.7-2.8) 05/17/21 05:30 Total Bilirubin 1.2 mg/dL (0.2-1.0) H 05/14/21 13:03 AST 24 IU/L (10-42) 05/14/21 13:03 ALT 25 IU/L (10-60) 05/14/21 13:03 Alkaline Phosphatase 57 IU/L (42-121) 05/14/21 13:03 Total Protein 6.4 g/dL (6.7-8.2) L 05/14/21 13:03 Albumin 3.2 g/dL (3.2-5.5) 05/14/21 13:03 Globulin 3.2 g/dL (2.1-4.2) 05/14/21 13:03 Albumin/Globulin Ratio 1.0 (1.0-2.2) 05/14/21 13:03 Lipase 61 U/L (22-51) H 05/14/21 13:03 Urine Color DARK YELLOW 05/14/21 15:13 Urine Clarity CLEAR (CLEAR) 05/14/21 15:13 Urine pH 6.0 PH (5.0-7.5) 05/14/21 15:13 Ur Specific [place] 1.020 (1.002-1.030) 05/14/21 15:13 Urine Protein 30 mg/dL (NEGATIVE) H 05/14/21 15:13 Urine Glucose (UA) NEGATIVE mg/dL (NEGATIVE) 05/14/21 15:13 Urine Ketones >=80 mg/dL (NEGATIVE) H 05/14/21 15:13 Urine Occult Blood SMALL (NEGATIVE) H 05/14/21 15:13 Urine Nitrite NEGATIVE (NEGATIVE) 05/14/21 15:13 Urine Bilirubin NEGATIVE (NEGATIVE) 05/14/21 15:13 Urine Urobilinogen 0.2 (NORMAL) E.U./dL (NORMAL) 05/14/21 15:13 Ur Leukocyte Esterase NEGATIVE (NEGATIVE) 05/14/21 15:13 Urine RBC 0-5 /HPF (0-5) 05/14/21 15:13 Urine WBC 0-3 /HPF (0-3) 05/14/21 15:13 Ur Squamous Epith Cells RARE Squamous (<= Few) 05/14/21 15:13 Urine Bacteria None Seen /HPF (None Seen) 05/14/21 15:13 Urine Casts 6-10 Cellular Casts /LPF 05/14/21 15:13 Ur Microscopic Review INDICATED 05/14/21 15:13 Urine Culture Comments NOT INDICATED 05/14/21 15:13 Nasal Adenovirus (PCR) NOT DETECTED 05/14/21 14:40 Nasal B. parapertussis DNA (PCR) NOT DETECTED 05/14/21 14:40 Nasal Coronavir 229E PCR NOT DETECTED 05/14/21 14:40 Nasal Coronavir HKU1 PCR NOT DETECTED 05/14/21 14:40 Nasal Coronavir NL63 PCR NOT DETECTED 05/14/21 14:40 Nasal Coronavir OC43 PCR NOT DETECTED 05/14/21 14:40 Nasal Enterovir/Rhinovir PCR NOT DETECTED 05/14/21 14:40 Nasal Influenza B PCR NOT DETECTED 05/14/21 14:40 Nasal Influenza A PCR NOT DETECTED 05/14/21 14:40 Nasal Parainfluen 1 PCR NOT DETECTED 05/14/21 14:40 Nasal Parainfluen 2 PCR NOT DETECTED 05/14/21 14:40 Nasal Parainfluen 3 PCR NOT DETECTED 05/14/21 14:40 Nasal Parainfluen 4 PCR NOT DETECTED 05/14/21 14:40 Nasal RSV (PCR) NOT DETECTED 05/14/21 14:40 Nasal B.pertussis DNA PCR NOT DETECTED 05/14/21 14:40 Nasal C.pneumoniae (PCR) NOT DETECTED 05/14/21 14:40 [place] Human Metapneumo PCR NOT DETECTED 05/14/21 14:40 Nasal M.pneumoniae (PCR) NOT DETECTED 05/14/21 14:40 Nasal SARS-CoV-2 (PCR) NOT DETECTED 05/14/21 14:40 Stl C. diff Tox B Gene NEGATIVE (NEGATIVE) 05/16/21 19:40 Slides for Path Review Indicated 05/14/21 13:03 - Procedures Procedures: Procedures REPLACEMENT OF RIGHT LENS WITH SYNTH SUB, PERC APPROACH (11/21/16) ABX Reporting Has patient been on IV antibiotics over the past 48 hours?: Yes
[2021-05-18 07:44] LABS: CALCIUM 8.1 mg/dL (8.5-10.3); CREATININE 0.7 mg/dL (0.6-1.2)
[2021-05-18 08:26] LABS: BASOPHILS % (AUTO) 0.9 %; EOSINOPHILS % (AUTO) 0.8 %; HCT - HEMATOCRIT 30.7 % (42.0-52.0); HGB - HEMOGLOBIN 10.3 g/dL (14.0-18.0); LYMPHOCYTES % (AUTO) 5.2 %; MEAN CORPUSCULAR HGB CONC 33.6 g/dL (32.0-36.0); MEAN CORPUSCULAR VOLUME 113.3 fL (80.0-94.0); MEAN PLATELET VOLUME 9.1 fL (7.4-11.4); MONOCYTES % (AUTO) 3.9 %; NEUTROPHILS % (AUTO) 71.8 %; PLT - PLATELET COUNT 747 10^3/uL (130-450); RED BLOOD COUNT 2.71 10^6/uL (4.70-6.10); RED CELL DISTRIBUTION WIDTH 14.3 % (12.0-15.0); WHITE BLOOD COUNT 16.3 x10^3/uL (4.8-10.8)
[2021-05-18 08:44] LABS: ABNORMAL LYMPHS % (MANUAL) 0 %
[2021-05-18] MEDS: BUDESONIDE 0.5 MG/2 ML NEB INH SCH (08:45)
[2021-05-18] MEDS: BECLOMETHASONE INH SCH ×2 (08:47→21:47)
[2021-05-18] MEDS: [UNRECOGNIZED DRUG - OTHER] INH SCH ×2 (08:47→21:47)
[2021-05-18 08:54] LABS: BAND NEUTROPHILS % (MANUAL) 11 %; BASOPHILS # (MANUAL) 0.2 10^3/uL (0-0.1); BASOPHILS % (MANUAL) 1 %; EOSINOPHILS # (MANUAL) 0.2 10^3/uL (0-0.7); LYMPHOCYTES # (MANUAL) 0.3 10^3/uL (1.5-3.5); LYMPHOCYTES % (MANUAL) 2 %; METAMYELOCYTES % (MANUAL) 3 %; MONOCYTES # (MANUAL) 0.7 10^3/uL (0.0-1.0); NEUTROPHILS # (MANUAL) 14.5 10^3/uL (1.5-6.6); PLATELET MORPHOLOGY NORMAL APPEARANCE (NORMAL); RBC MORPHOLOGY (MULTIPLE) 2+ MACROCYTOSIS (NORMAL)
[2021-05-18 08:55] LABS: DIFFERENTIAL COMMENT MANUAL DIFFERENTIAL; PLATELET ESTIMATE, MANUAL INCREASED (>450,000) (NORMAL)
[2021-05-18] MEDS: HYDROXYUREA 500 MG CAPSULE PO SCH ×2 (09:22→20:39)
[2021-05-18] MEDS: ENOXAPARIN 40 MG/0.4 ML SYRINGE SUBQ SCH (09:23)
[2021-05-18] MEDS: CIPROFLOXACIN 400 MG/200 ML 400 MG/200 ML BAG IV SCH ×2 (09:23→20:38)
[2021-05-18] MEDS: SACCHAROMYCES BOULARDII 250 MG CAPSULE PO SCH (17:18)
[2021-05-18] MEDS: MONTELUKAST 10 MG TABLET PO SCH (20:38)
[2021-05-19] MEDS: metroNIDAZOLE 500 MG/100 ML 500 MG/100 ML BAG IV SCH ×3 (03:11→18:24)
[2021-05-19] MEDS: ONDANSETRON ODT 4 MG TABLET TL PRN ×2 (03:11→23:55)
[2021-05-19] MEDS: LACTATED RINGERS 1,000 ML IV SCH ×3 (05:57→15:15)
[2021-05-19] MEDS: SODIUM CHLORIDE FLUSH 0.9% 10 ML SYRINGE IVP SCH ×3 (05:58→16:51)
[2021-05-19] MEDS: PANTOPRAZOLE 40 MG TABLET PO SCH (06:31)
[2021-05-19 06:55] LABS: BASOPHILS % (AUTO) 0.7 %; EOSINOPHILS % (AUTO) 0.7 %; HCT - HEMATOCRIT 29.6 % (42.0-52.0); LYMPHOCYTES % (AUTO) 6.5 %; MEAN CORPUSCULAR HEMOGLOBIN 37.7 pg (27.0-31.0); MEAN CORPUSCULAR HGB CONC 33.8 g/dL (32.0-36.0); MEAN CORPUSCULAR VOLUME 111.7 fL (80.0-94.0); MEAN PLATELET VOLUME 8.9 fL (7.4-11.4); MONOCYTES % (AUTO) 3.4 %; NEUTROPHILS % (AUTO) 75.8 %; PLT - PLATELET COUNT 698 10^3/uL (130-450); RED BLOOD COUNT 2.65 10^6/uL (4.70-6.10); RED CELL DISTRIBUTION WIDTH 13.8 % (12.0-15.0); WHITE BLOOD COUNT 13.4 x10^3/uL (4.8-10.8)
[2021-05-19 06:57] LABS: SLIDE REVIEW? Indicated
[2021-05-19 06:58] LABS: ABNORMAL LYMPHS % (MANUAL) 0 %
[2021-05-19 06:59] LABS: CALCIUM 7.9 mg/dL (8.5-10.3); CREATININE 0.6 mg/dL (0.6-1.2); POTASSIUM 2.8 mmol/L (3.5-5.0)
[2021-05-19] MEDS ORDERED: NON FORMULARY MED (Omeprazole [Omeprazole] 20 MG Tablet.Dr) PO SCH (07:00)
[2021-05-19 07:34] LABS: BAND NEUTROPHILS % (MANUAL) 6 %; LYMPHOCYTES # (MANUAL) 0.9 10^3/uL (1.5-3.5); LYMPHOCYTES % (MANUAL) 7 %; METAMYELOCYTES % (MANUAL) 5 %; MONOCYTES # (MANUAL) 0.4 10^3/uL (0.0-1.0); NEUTROPHILS # (MANUAL) 11.4 10^3/uL (1.5-6.6)
[2021-05-19 07:42] LABS: PLATELET MORPHOLOGY NORMAL APP (NORMAL)
[2021-05-19 07:43] LABS: PLATELET ESTIMATE, MANUAL DECREASED (<130,000) (NORMAL); WBC MORPHOLOGY (MULTIPLE) NORMAL APP (NORMAL)
[2021-05-19 07:44] LABS: DIFFERENTIAL COMMENT MANUAL DIFFERENTIAL; RBC MORPHOLOGY (MULTIPLE) 2+ MACROCYTOSIS (NORMAL)
[2021-05-19] MEDS: SACCHAROMYCES BOULARDII 250 MG CAPSULE PO SCH ×2 (08:21→16:51)
[2021-05-19] MEDS: HYDROXYUREA 500 MG CAPSULE PO SCH ×2 (08:21→20:58)
[2021-05-19] MEDS: ENOXAPARIN 40 MG/0.4 ML SYRINGE SUBQ SCH (08:21)
[2021-05-19] MEDS: [UNRECOGNIZED DRUG - OTHER] INH SCH ×2 (08:22→20:10)
[2021-05-19] MEDS: BECLOMETHASONE INH SCH ×2 (08:22→20:10)
[2021-05-19] MEDS: CIPROFLOXACIN 400 MG/200 ML 400 MG/200 ML BAG IV SCH ×2 (08:27→20:49)
--- NOTE | 2021-05-19 08:42 | PROVIDER PROGRESS NOTE ---
Assessment/Plan - Problem List (1) Gastroenteritis Assessment/Plan: WBC today decreased from 16 to 13.4. Patient reported no bowel movement in a 12-hour. We will continue Cipro 400 mg IV twice daily and Flagyl 500 mg IV 3 times daily. Patient tolerated a soft diet. We will initiate a probiotic today. (2) Diarrhea Assessment/Plan: Secondary to gastroenteritis due to Shigella and Enteroinvasive E. coli. On Cipro 400 mg IV twice daily and Flagyl 500 mg IV 3 times daily Continue IV hydration with lactated Ringer's at 125 mL/h. (3) Dehydration Assessment/Plan: Secondary to gastroenteritis due to Shigella and Enteroinvasive E. coli. On Cipro 400 mg IV twice daily Continue IV hydration with lactated Ringer's at 125 mL/h. (4) Hypokalemia due to excessive gastrointestinal loss of potassium Assessment/Plan: Potassium today was 2.8. Potassium is being replaced with potassium chloride IV. We will recheck and continue replacing accordingly. - Current Meds Current Meds: Current Medications Generic Name Dose Route Start Last Admin Trade Name Freq PRN Reason Stop Dose Admin Albuterol 2 puffs 05/15/21 19:49 05/16/21 10:20 Albuterol 6.7 Gm Inhaler INH 2 puffs Q4HR PRN Administration Shortness of Air/Wheezing Beclomethasone Dipropionate 2 puffs 05/17/21 21:00 05/19/21 08:22 Pt Own Med- QvarBeclomethasone 80 Mcg Inhaler INH 2 puffs BID SONI Administration Enoxaparin Sodium 40 mg 05/15/21 09:00 05/19/21 08:21 Enoxaparin 40 Mg/0.4 Ml Syringe SUBQ 40 mg DAILY SONI Administration Guaifenesin 100 mg 05/15/21 19:39 05/15/21 21:04 Guaifenesin 100 Mg/5 Ml Udc PO 100 mg Q6HR PRN Administration Cough Hydroxyurea 1,000 mg 05/15/21 09:00 05/19/21 08:21 Hydroxyurea 500 Mg Capsule PO 1,000 mg DAILY SONI Administration Hydroxyurea 1,000 mg 05/15/21 21:00 05/17/21 21:29 Hydroxyurea 500 Mg Capsule PO 1,000 mg SuTuThSa@2100 SONI Administration Hydroxyurea 500 mg 05/14/21 21:00 05/18/21 20:39 Hydroxyurea 500 Mg Capsule PO Not Given MoWeFr@2100 SONI Lactated Ringer's 1,000 mls @ 125 mls/hr 05/14/21 22:44 05/19/21 08:27 Lr IV 0 mls/hr .Q8H SONI Infusion Ciprofloxacin 400 mg in 200 mls @ 200 mls/hr 05/16/21 21:00 05/19/21 08:27 Cipro 400 Mg/200 Ml IV 05/20/21 20:59 200 mls/hr Q12H SONI Administration Metronidazole 500 mg in 100 mls @ 100 mls/hr 05/16/21 19:00 05/19/21 04:15 Flagyl 500 Mg/100 Ml IV Infused Q8H SONI Infusion Montelukast Sodium 10 mg 05/15/21 21:00 05/18/21 20:38 Montelukast 10 Mg Tablet PO 10 mg QPM SONI Administration Ondansetron HCl 4 mg 05/14/21 15:21 05/19/21 03:11 Ondansetron Odt 4 Mg Tablet TL 4 mg Q6HR PRN Administration Nausea / Vomiting Pantoprazole Sodium 40 mg 05/19/21 07:00 05/19/21 06:31 Pantoprazole 40 Mg Tablet PO 40 mg QDAC SONI Administration Saccharomyces Boulardii 250 mg 05/18/21 17:00 05/19/21 08:21 Saccharomyces Boulardii 250 Mg Capsule PO 250 mg BIDWM SONI Administration Sodium Chloride 10 ml 05/14/21 17:00 05/19/21 08:23 Sodium Chloride Flush 0.9% 10 Ml Syringe IVP Not Given 0100,0900,1700 SONI - Lab Result Fish Bone Diagrams: 05/19/21 06:42 05/19/21 06:42 - Additional Planning My Orders: My Active Orders 05/18/21 Dinner Regular Diet [DIET] 05/18/21 17:00 Saccharomyces Boulardii [Florastor] 250 mg PO BIDWM 05/19/21 09:00 Potassium Chloride/Water 10 mEq/100 mL q1h (Enter # of bags) Potassium Chlor 10 Meq/100 ml [Potassium Chloride] 10 meq in 100 ml IV Q1H 05/20/21 05:00 BMP - BASIC METABOLIC PANEL [CHEM] DAILYLAB CBC - COMP BLD CT W/AUTO DIFF [HEME] DAILYLAB 05/21/21 05:00 BMP - BASIC METABOLIC PANEL [CHEM] DAILYLAB 05/22/21 05:00 BMP - BASIC METABOLIC PANEL [CHEM] DAILYLAB 05/23/21 05:00 BMP - BASIC METABOLIC PANEL [CHEM] DAILYLAB Subjective - Subjective Patient Reports: Other (Resting comfortably in the bedside chair at time of exam. Has not had another bowel movement in 12 hours. Was tolerating a soft diet well. Overall reports feeling better. White blood cell count further improved from 16 down to 13.4) Objective Vital Signs: Vital Signs - 24 hr 05/18/21 05/18/21 05/18/21 08:49 13:00 16:12 Temperature 36 C L 36.7 C Heart Rate 92 Heart Rate [ 87 Brachial] Heart Rate [ 79 Monitoring electrodes] Respiratory 18 18 16 Rate Blood Pressure 132/79 H 135/84 H [Right Brachial artery] O2 Saturation 98 99 05/18/21 05/18/21 05/19/21 19:22 21:45 00:28 Temperature 37.4 C 36.7 C Heart Rate 88 Heart Rate [ 78 Brachial] Heart Rate [ 81 Monitoring electrodes] Respiratory 18 18 20 Rate Blood Pressure 147/75 H 147/73 H [Right Brachial artery] O2 Saturation 94 95 05/19/21 05/19/21 06:30 07:40 Temperature 36.8 C 36.5 C Heart Rate Heart Rate [ 79 Brachial] Heart Rate [ 81 Monitoring electrodes] Respiratory 20 17 Rate Blood Pressure 140/77 H 144/79 H [Right Brachial artery] O2 Saturation 93 94 Oxygen O2 Source Room air I&O (Last 24 Hrs): Intake and Output Totals x24h 05/17/21 05/18/21 05/19/21 23:59 23:59 23:59 Intake Total 5349.583 4613.333 1812.5 Output Total 8 600 500 Balance 5341.583 4013.333 1312.5 General: Alert, Oriented x3, No acute distress HEENT: PERRLA, EOMI Neck: Supple, No JVD Neuro: Alert, Oriented Times 3 Cardiovascular: Regular rate, Normal S1, Normal S2 Respiratory: Chest non-tender, No respiratory distress, Breath sounds nml Abdomen: Normal bowel sounds, Soft, No tenderness, No masses Extremities: No clubbing, No cyanosis, Other (+1 edema in ankles bilaterally) - Results Results: Laboratory Results WBC 13.4 x10^3/uL (4.8-10.8) H 05/19/21 06:42 RBC 2.65 10^6/uL (4.70-6.10) L 05/19/21 06:42 Hgb 10.0 g/dL (14.0-18.0) L 05/19/21 06:42 Hct 29.6 % (42.0-52.0) L 05/19/21 06:42 MCV 111.7 fL (80.0-94.0) H 05/19/21 06:42 MCH 37.7 pg (27.0-31.0) H 05/19/21 06:42 MCHC 33.8 g/dL (32.0-36.0) 05/19/21 06:42 RDW 13.8 % (12.0-15.0) 05/19/21 06:42 Plt Count 698 10^3/uL (130-450) H 05/19/21 06:42 MPV 8.9 fL (7.4-11.4) 05/19/21 06:42 Neut # (Auto) Not Reportable 05/19/21 06:42 Lymph # (Auto) Not Reportable 05/19/21 06:42 [place] # (Auto) Not Reportable 05/19/21 06:42 Eos # (Auto) Not Reportable 05/19/21 06:42 Baso # (Auto) Not Reportable 05/19/21 06:42 Absolute Nucleated RBC Not Reportable 05/19/21 06:42 Total Counted 100 05/19/21 06:42 Band Neuts % (Manual) 6 % (0-10) 05/19/21 06:42 Reactive Lymphs % (Man) 1 % 05/15/21 05:30 Abnorm Lymph % (Manual) 0 % 05/19/21 06:42 Metamyelocytes % 5 % (-0) H 05/19/21 06:42 Myelocytes % 5 % (-0) H 05/17/21 05:30 Nucleated RBC % Not Reportable 05/19/21 06:42 Neutrophils # (Manual) 11.4 10^3/uL (1.5-6.6) H 05/19/21 06:42 Lymphocytes # (Manual) 0.9 10^3/uL (1.5-3.5) L 05/19/21 06:42 Monocytes # (Manual) 0.4 10^3/uL (0.0-1.0) 05/19/21 06:42 Eosinophils # (Manual) 0.0 10^3/uL (0-0.7) 05/19/21 06:42 Basophils # (Manual) 0.0 10^3/uL (0-0.1) 05/19/21 06:42 Differential Comment MANUAL DIFFERENTIAL 05/19/21 06:42 Manual Slide Review Indicated 05/19/21 06:42 WBC Morphology NORMAL AVANI (NORMAL) 05/19/21 06:42 Platelet Estimate DECREASED (<130,000) (NORMAL) 05/19/21 06:42 Platelet Morphology NORMAL AVANI (NORMAL) 05/19/21 06:42 RBC Morph Micro Appear 2+ MACROCYTOSIS (NORMAL) 05/19/21 06:42 Smear Path Review SEE SEPARATE REPORT 05/14/21 13:50 Sodium 137 mmol/L (135-145) 05/19/21 06:42 Potassium 2.8 mmol/L (3.5-5.0) L 05/19/21 06:42 Chloride 100 mmol/L (101-111) L 05/19/21 06:42 Carbon Dioxide 28 mmol/L (21-32) 05/19/21 06:42 Anion Gap 9.0 (6-13) 05/19/21 06:42 BUN 5 mg/dL (6-20) L 05/19/21 06:42 Creatinine 0.6 mg/dL (0.6-1.2) 05/19/21 06:42 Estimated GFR (MDRD) 132 (>89) 05/19/21 06:42 Glucose 117 mg/dL (70-100) H 05/19/21 06:42 Calcium 7.9 mg/dL (8.5-10.3) L 05/19/21 06:42 Magnesium 1.7 mg/dL (1.7-2.8) 05/17/21 05:30 Total Bilirubin 1.2 mg/dL (0.2-1.0) H 05/14/21 13:03 AST 24 IU/L (10-42) 05/14/21 13:03 ALT 25 IU/L (10-60) 05/14/21 13:03 Alkaline Phosphatase 57 IU/L (42-121) 05/14/21 13:03 Total Protein 6.4 g/dL (6.7-8.2) L 05/14/21 13:03 Albumin 3.2 g/dL (3.2-5.5) 05/14/21 13:03 Globulin 3.2 g/dL (2.1-4.2) 05/14/21 13:03 Albumin/Globulin Ratio 1.0 (1.0-2.2) 05/14/21 13:03 Lipase 61 U/L (22-51) H 05/14/21 13:03 Urine Color DARK YELLOW 05/14/21 15:13 Urine Clarity CLEAR (CLEAR) 05/14/21 15:13 Urine pH 6.0 PH (5.0-7.5) 05/14/21 15:13 Ur Specific [place] 1.020 (1.002-1.030) 05/14/21 15:13 Urine Protein 30 mg/dL (NEGATIVE) H 05/14/21 15:13 Urine Glucose (UA) NEGATIVE mg/dL (NEGATIVE) 05/14/21 15:13 Urine Ketones >=80 mg/dL (NEGATIVE) H 05/14/21 15:13 Urine Occult Blood SMALL (NEGATIVE) H 05/14/21 15:13 Urine Nitrite NEGATIVE (NEGATIVE) 05/14/21 15:13 Urine Bilirubin NEGATIVE (NEGATIVE) 05/14/21 15:13 Urine Urobilinogen 0.2 (NORMAL) E.U./dL (NORMAL) 05/14/21 15:13 Ur Leukocyte Esterase NEGATIVE (NEGATIVE) 05/14/21 15:13 Urine RBC 0-5 /HPF (0-5) 05/14/21 15:13 Urine WBC 0-3 /HPF (0-3) 05/14/21 15:13 Ur Squamous Epith Cells RARE Squamous (<= Few) 05/14/21 15:13 Urine Bacteria None Seen /HPF (None Seen) 05/14/21 15:13 Urine Casts 6-10 Cellular Casts /LPF 05/14/21 15:13 Ur Microscopic Review INDICATED 05/14/21 15:13 Urine Culture Comments NOT INDICATED 05/14/21 15:13 Nasal Adenovirus (PCR) NOT DETECTED 05/14/21 14:40 Nasal B. parapertussis DNA (PCR) NOT DETECTED 05/14/21 14:40 Nasal Coronavir 229E PCR NOT DETECTED 05/14/21 14:40 Nasal Coronavir HKU1 PCR NOT DETECTED 05/14/21 14:40 Nasal Coronavir NL63 PCR NOT DETECTED 05/14/21 14:40 Nasal Coronavir OC43 PCR NOT DETECTED 05/14/21 14:40 Nasal Enterovir/Rhinovir PCR NOT DETECTED 05/14/21 14:40 Nasal Influenza B PCR NOT DETECTED 05/14/21 14:40 Nasal Influenza A PCR NOT DETECTED 05/14/21 14:40 Nasal Parainfluen 1 PCR NOT DETECTED 05/14/21 14:40 Nasal Parainfluen 2 PCR NOT DETECTED 05/14/21 14:40 Nasal Parainfluen 3 PCR NOT DETECTED 05/14/21 14:40 Nasal Parainfluen 4 PCR NOT DETECTED 05/14/21 14:40 Nasal RSV (PCR) NOT DETECTED 05/14/21 14:40 Nasal B.pertussis DNA PCR NOT DETECTED 05/14/21 14:40 Nasal C.pneumoniae (PCR) NOT DETECTED 05/14/21 14:40 [place] Human Metapneumo PCR NOT DETECTED 05/14/21 14:40 Nasal M.pneumoniae (PCR) NOT DETECTED 05/14/21 14:40 Nasal SARS-CoV-2 (PCR) NOT DETECTED 05/14/21 14:40 Stl C. diff Tox B Gene NEGATIVE (NEGATIVE) 05/16/21 19:40 Slides for Path Review Indicated 05/14/21 13:03 - Procedures Procedures: Procedures REPLACEMENT OF RIGHT LENS WITH SYNTH SUB, PERC APPROACH (11/21/16) ABX Reporting Has patient been on IV antibiotics over the past 48 hours?: Yes
[2021-05-19] MEDS: POTASSIUM CHLOR 10 MEQ/100 ML 10 MEQ/100 ML BAG IV SCH ×8 (09:24→22:54)
[2021-05-19] MEDS: MONTELUKAST 10 MG TABLET PO SCH (20:49)
[2021-05-20] MEDS: SODIUM CHLORIDE FLUSH 0.9% 10 ML SYRINGE IVP SCH ×2 (00:34→11:19)
[2021-05-20] MEDS: LACTATED RINGERS 1,000 ML IV SCH (02:07)
[2021-05-20] MEDS: metroNIDAZOLE 500 MG/100 ML 500 MG/100 ML BAG IV SCH ×2 (03:20→11:15)
[2021-05-20] MEDS: PANTOPRAZOLE 40 MG TABLET PO SCH (06:13)
[2021-05-20 06:33] LABS: BASOPHILS % (AUTO) 0.6 %; EOSINOPHILS % (AUTO) 0.5 %; HCT - HEMATOCRIT 29.7 % (42.0-52.0); HGB - HEMOGLOBIN 9.9 g/dL (14.0-18.0); LYMPHOCYTES % (AUTO) 6.2 %; MEAN CORPUSCULAR HEMOGLOBIN 37.8 pg (27.0-31.0); MEAN CORPUSCULAR HGB CONC 33.3 g/dL (32.0-36.0); MEAN CORPUSCULAR VOLUME 113.4 fL (80.0-94.0); MEAN PLATELET VOLUME 8.8 fL (7.4-11.4); MONOCYTES % (AUTO) 4.2 %; NEUTROPHILS % (AUTO) 78.4 %; PLT - PLATELET COUNT 611 10^3/uL (130-450); RED BLOOD COUNT 2.62 10^6/uL (4.70-6.10)
[2021-05-20 06:42] LABS: ABNORMAL LYMPHS % (MANUAL) 0 %
[2021-05-20 06:53] LABS: CALCIUM 7.9 mg/dL (8.5-10.3); CREATININE 0.7 mg/dL (0.6-1.2); POTASSIUM 3.2 mmol/L (3.5-5.0)
[2021-05-20 06:58] LABS: BAND NEUTROPHILS % (MANUAL) 5 %; LYMPHOCYTES # (MANUAL) 1.1 10^3/uL (1.5-3.5); LYMPHOCYTES % (MANUAL) 11 %; MONOCYTES # (MANUAL) 0.7 10^3/uL (0.0-1.0); MYELOCYTES % (MANUAL) 2 %
[2021-05-20 06:59] LABS: DIFFERENTIAL COMMENT MANUAL DIFFERENTIAL; PLATELET ESTIMATE, MANUAL INCREASED (>450,000) (NORMAL); PLATELET MORPHOLOGY NORMAL APPEARANCE (NORMAL); WBC MORPHOLOGY (MULTIPLE) NORMAL APPEARANCE (NORMAL)
[2021-05-20] MEDS ORDERED: POTASSIUM CHLORIDE 20 MEQ TABLET PO ONE (08:34)
--- NOTE | 2021-05-20 08:57 | DISCHARGE SUMMARY ---
Discharge Summary Admit Date: 05/14/21 Discharge Date: 05/20/21 Discharging Provider: Taryn Dupree Primary Care Provider: Malik Kaur Code Status: Do Not Attempt Resuscitation Condition at Discharge: Stable Discharge Disposition: 01 Home, Self Care - DIAGNOSES Admission Diagnoses: Dehydration Hypokalemia due to excessive gastrointestinal loss of potassium Diarrhea Essential thrombocytosis Asthma Hypertension Discharge Diagnoses with Status of Each Condition: Gastroenteritis: Acute. Secondary to Shigella and enteroinvasive E. coli. Resolved. 3 days of Cipro to 50 mg p.o. twice daily ordered upon discharge. Diarrhea: Acute. Secondary to gastroenteritis. Resolved Dehydration: Acute. Secondary to diarrhea from gastroenteritis. Resolved Hypokalemia due to excessive gastrointestinal loss of potassium: Acute. Secondary to diarrhea from gastroenteritis. Improving Essential thrombocytosis: Chronic. Patient on hydroxyurea. Patient to follow- up with his bariatric coordinator in the outpatient setting at [facility] Asthma: Chronic. Not in exacerbation. Continue home medications Hypertension: Stable. Controlled. Chronic. Continue home medications - HPI History of Present Illness: Per HPI: Jeimy is a 70 year old male who is experiencing severe, uncontrollable diarrhea for one week. He denies any abdominal pain or bloody diarrhea. On 05/09 he presented to the walk in clinic with diarrhea and a fever of up to 102 for 2 days and was advised to go to the ED. There, he was treated with IV fluids. He was discharged with a diagnosis of viral gastroenteritis and was expected to improve in 1-2 days. Unfortunately, Jeimy presented to the ED again today, still experiencing violent diarrhea. He reports as many as 75 episodes of diarrhea over the last week. At first, the diarrhea was clear but in the last day or so it has become a darker brown color. He does not have an appetite and has only eaten 5 saltines since his diarrhea started. He has been drinking water, gatorade, and electrolyte drinks at home in an effort to replenish his fluids. He has lost 12 pounds in the last 7 days. He is getting up to use the bathroom nearly every 2 hours and is feeling exhausted. Jeimy is concerned that his will be worried about him until he figures out why this is happening and starts feeling better. Today his temperature is 36.9 C, pulse 112, respirations 16, BP 106/58, and O2% is 98%. Today, he is feeling the worst he has felt since this began one week ago. He is feeling fatigued, weak, and having great difficulty concentrating. He sometimes feels dizzy but denies syncope. He does not have a fever or chills. He has no sick contacts, no recent antibiotic use, no recent travel, and has not started any new medications. He occasionally eats canned pears that his makes. He did eat two sausage and egg sandwiches from [employer] last Friday between 7- 8am; his symptoms started that day at 1pm. He did a stool sample kit at home and is curious about the results; status is pending. His WBC is 18.6. Sodium is 132- 133. Potassium was 1.7 before potassium was added to his fluids. Now potassium is 2.7. Jeimy has essential thrombocytosis and is under the care of a bariatric coordinator at [facility] for this. Today his platelets are at 845. He also has a history of asthma for which he uses fluticasone and beclamethasone inhalers. This is well-controlled. He also has a history of hypertension but cannot recall the name of the medication he takes. Jeimy is being admitted for observation of his dehydration and hypokalemia secondary to his diarrhea. - HOSPITAL COURSE Hospital Course: Patient was admitted to the hospital and started on IV fluids with lactated Ringer's while his potassium was being replaced daily intravenously. Stool cultures were sent out. Results are pending to date. However within 24 hours of hospital stay the patient's primary care physician Dr. Malik Kaur called with PCR results of stool studies done in the outpatient setting. Patient was positive for Shigella and enteroinvasive E. coli. C. difficile test was negative. He was initially started on Cipro 500 mg p.o. twice daily. His white count elevated from 14-23 on the first day and patient continued to have diarrhea about every 2 hours. Cipro was switched to Cipro 400 mg IV twice daily and Flagyl 500 mg 3 times daily IV was also initiated. Patient symptoms steadily improved over the course of 3 days after intravenous antibiotics initiated. In the 24 hours prior to discharge patient had not had/experience any diarrhea. His diet was advanced and he tolerated solid foods well. His potassium was replaced daily intravenously. On the day of discharge his morning potassium was 3.2. He received 40 mEq IV and 20 mEq p.o. prior to discharge. He has +1 lower extremity edema due to continuous IV hydration while in the hospital. Patient does not have any difficulty breathing. Is expected/ anticipated that this will resolve within the next week upon going home. His white blood cell count was 10 on the day of discharge. He was afebrile with stable blood pressure of 140/74 and a heart rate of 82. Oxygen saturation was 94% on room air with respiratory rate of 20. He was discharged in stable condition. - ALLERGIES Allergies/Adverse Reactions: Allergies Allergy/AdvReac Type Severity Reaction Status Date / Time meperidine HCl * AdvReac Intermediate Hives Verified 05/14/21 12:26 [From Demerol] Penicillins AdvReac Intermediate Hives Verified 05/14/21 12:26 - MEDICATIONS Home Medications: Ambulatory Orders Medication Instructions Recorded Confirmed Aspirin [Aspir 81] 81 mg PO DAILY 11/01/14 05/14/21 Hydroxyurea 1,000 mg PO DAILY 11/01/14 05/14/21 Omeprazole 20 mg PO QDAC 11/01/14 05/14/21 allopurinoL [Allopurinol] 300 mg PO DAILY 11/01/14 05/14/21 Montelukast [Singulair] 10 mg PO QPM 11/21/16 05/14/21 Albuterol Sulf [Ventolin Hfa 2 puffs INH Q4HR PRN 05/14/21 05/14/21 Inhaler] Amlodipine Besylate [Norvasc] 2.5 mg PO QPM 05/14/21 05/14/21 Beclomethasone Dipropionate [Qvar 2 puffs INH BID 05/14/21 05/14/21 Redihaler (80 mcg)] Hydroxyurea [Hydrea] 1,000 mg PO SUTUTHSA@2100 05/14/21 05/14/21 Hydroxyurea [Hydrea] 500 mg PO MOWEFR@2100 05/14/21 05/14/21 Ivermectin [Soolantra] 1 applic TP QPM 05/14/21 05/14/21 metroNIDAZOLE 0.75% GEL [Flagyl 1 applic TOP QPM 05/14/21 05/14/21 Gel] Ciprofloxacin [Cipro] 250 mg PO Q12H 3 Days #6 tablet 10/24/21 - PHYSICAL EXAM AT DISCHARGE General Appearance: positive: No acute distress, Alert Eyes Bilateral: positive: PERRL, EOMI ENT: positive: No signs of dehydration Neck: positive: No JVD, Trachea midline Respiratory: positive: Chest non-tender, No respiratory distress, Breath sounds nml. negative: Wheezes, Rales, Rhonchi Cardiovascular: positive: Regular rate & rhythm, No murmur Abdomen: positive: Non-tender, No organomegaly, Nml bowel sounds, No distention. negative: Guarding, Rebound Skin: positive: Color nml, No rash, Warm, Dry Extremities: positive: Non-tender, Full ROM, Nml appearance, Pedal edema (+1) Neurologic/Psychiatric: positive: Oriented x3, Mood/affect nml - LABS Result Diagrams: 05/20/21 06:18 05/20/21 06:18 - TIME SPENT Time Spent in Discharge (Minutes): 25
--- NOTE | 2021-05-20 09:00 | Discharge Plan ---
Discharge Plan Problem Reviewed?: Yes Disposition: Home, Self Care Condition: Stable Prescriptions: Ciprofloxacin [Cipro] 250 mg PO Q12H 3 Days #6 tablet Diet: Soft Activity Restrictions: Activity as Tolerated Weight Bearing: Full Weight Health Concerns: You were admitted on 05/14/2021 weight extensive diarrhea and a fever. Initial work-up which had been done by your primary care physician Dr. Kaur in the outpatient setting included stool studies which came back positive for Shigella and enteroinvasive E. coli. As a result you were treated with Cipro twice daily and Flagyl twice daily. Your symptoms steadily improved over the course of your hospital stay. By the day of discharge your white blood cell count was normal you had not experienced any more diarrhea in over 24 hours and you were tolerating solid foods well. You also had a very low potassium at time of admission at 1.7. Your potassium has been replaced daily and has steadily improved. On the last day of hospital stay your potassium was 3.2. This was further replaced before discharge. As a result you are being discharged home with a prescription of Cipro to 50 mg p.o. twice daily for 3 more days. You also have some lower extremity swelling as a result of the fluids you were given during your hospital stay. It is expected that this will steadily decrease and resolve over the course of a week while you are home. You may follow-up with your primary care physician within a week or as needed. The above plan was discussed with you, you expressed understanding and are in agreement with the plan. No Smoking: If you smoke, Please STOP! Call for help. Follow-up with: Malik Kaur MD [Primary Care Provider] -
[2021-05-20] MEDS: SACCHAROMYCES BOULARDII 250 MG CAPSULE PO SCH (09:33)
[2021-05-20] MEDS: HYDROXYUREA 500 MG CAPSULE PO SCH (09:34)
[2021-05-20] MEDS: ENOXAPARIN 40 MG/0.4 ML SYRINGE SUBQ SCH (09:35)
[2021-05-20] MEDS: POTASSIUM CHLOR 10 MEQ/100 ML 10 MEQ/100 ML BAG IV SCH ×4 (09:36→13:32)
[2021-05-20] MEDS: CIPROFLOXACIN 400 MG/200 ML 400 MG/200 ML BAG IV SCH (09:36)
[2021-05-20] MEDS: [UNRECOGNIZED DRUG - OTHER] INH SCH (11:19)
[2021-05-20] MEDS: BECLOMETHASONE INH SCH (11:19)
[2021-05-20 12:20] VITALS: BP 122/72
== END 2021-05-20 15:10 | disposition home or self-care (01) | DRG 373 ==
LOC: ED 11:49 → MS2 15:21 → OBSVTOIN 05-15 12:07
PROVIDERS: ADMIT Specialist; ATTEND Internal Medicine
DX: K52.9 Noninfective gastroenteritis and colitis, unspecified (principal); A04.4 Other intestinal Escherichia coli infections; E86.0 Dehydration; E87.6 Hypokalemia; D47.3 Essential (hemorrhagic) thrombocythemia; Z20.822 Contact with and (suspected) exposure to COVID-19; J45.909 Unspecified asthma, uncomplicated; I10 Essential (primary) hypertension; R53.1 Weakness; K21.9 Gastro-esophageal reflux disease without esophagitis; A03.9 Shigellosis, unspecified; R63.4 Abnormal weight loss; Z68.25 Body mass index [BMI] 25.0-25.9, adult
CPT/HCPCS: 36415; 80048; 80053; 81001; 81599; 83690; 83735; 85025; 87493; 87631; 94640; 96360; 96361; 96372; 99284; 99285; A9270; G0378; J1650; J7120; J7613; Q0162; 0202U; 81003; 87045; 87046; 87086

== ENCOUNTER 2022-01-10 07:32 | Outpatient (CLI) | payer MEDICARE, OTHER ==
[2022-01-10 07:46] LABS: BASOPHILS # (AUTO) 0.1 10^3/uL (0.0-0.1); BASOPHILS % (AUTO) 0.8 %; EOSINOPHILS # (AUTO) 0.1 10^3/uL (0.0-0.7); EOSINOPHILS % (AUTO) 0.7 %; HCT - HEMATOCRIT 39.9 % (42.0-52.0); HGB - HEMOGLOBIN 13.4 g/dL (14.0-18.0); LYMPHOCYTES # (AUTO) 1.9 10^3/uL (1.5-3.5); LYMPHOCYTES % (AUTO) 13.1 %; MEAN CORPUSCULAR HEMOGLOBIN 37.6 pg (27.0-31.0); MEAN CORPUSCULAR HGB CONC 33.6 g/dL (32.0-36.0); MEAN CORPUSCULAR VOLUME 112.1 fL (80.0-94.0); MEAN PLATELET VOLUME 9.5 fL (7.4-11.4); MONOCYTES # (AUTO) 0.9 10^3/uL (0.0-1.0); NEUTROPHILS # (AUTO) 9.6 10^3/uL (1.5-6.6); NEUTROPHILS % (AUTO) 66.5 %; PLT - PLATELET COUNT 775 10^3/uL (130-450); RED BLOOD COUNT 3.56 10^6/uL (4.70-6.10); RED CELL DISTRIBUTION WIDTH 13.7 % (12.0-15.0); WHITE BLOOD COUNT 14.4 x10^3/uL (4.8-10.8)
[2022-01-10 07:49] LABS: SLIDE REVIEW? Indicated
[2022-01-10 08:50] LABS: DIFFERENTIAL COMMENT MANUAL=AUTO DIFF; PLATELET ESTIMATE, MANUAL INCREASED (>450,000) (NORMAL); PLATELET MORPHOLOGY NORMAL APPEARANCE (NORMAL); RBC MORPHOLOGY (MULTIPLE) 1+ MACROCYTOSIS (NORMAL); WBC MORPHOLOGY (MULTIPLE) 1+ HYPERSEG NEUT (NORMAL)
== END 2022-01-10 07:33 | disposition home or self-care (01) ==
LOC: LAB 07:32
DX: D47.3 Essential (hemorrhagic) thrombocythemia (principal)
CPT/HCPCS: 36415; 85025

== ENCOUNTER 2022-01-23 11:10 | Outpatient (CLI) | payer MEDICARE, OTHER ==
[2022-01-23 11:22] LABS: BASOPHILS % (AUTO) 0.8 %; HCT - HEMATOCRIT 38.4 % (42.0-52.0); HGB - HEMOGLOBIN 12.7 g/dL (14.0-18.0); LYMPHOCYTES % (AUTO) 10.6 %; MEAN CORPUSCULAR HEMOGLOBIN 36.2 pg (27.0-31.0); MEAN CORPUSCULAR HGB CONC 33.1 g/dL (32.0-36.0); MEAN CORPUSCULAR VOLUME 109.4 fL (80.0-94.0); MEAN PLATELET VOLUME 9.5 fL (7.4-11.4); NEUTROPHILS % (AUTO) 74.5 %; PLT - PLATELET COUNT 446 10^3/uL (130-450); RED BLOOD COUNT 3.51 10^6/uL (4.70-6.10); RED CELL DISTRIBUTION WIDTH 13.8 % (12.0-15.0); WHITE BLOOD COUNT 10.2 x10^3/uL (4.8-10.8)
[2022-01-23 11:29] LABS: SLIDE REVIEW? Indicated
[2022-01-23 11:49] LABS: ABNORMAL LYMPHS % (MANUAL) 0 %
[2022-01-23 12:00] LABS: BAND NEUTROPHILS % (MANUAL) 3 %; BASOPHILS # (MANUAL) 0.2 10^3/uL (0-0.1); BASOPHILS % (MANUAL) 2 %; LYMPHOCYTES % (MANUAL) 9 %; METAMYELOCYTES % (MANUAL) 1 %; MONOCYTES # (MANUAL) 0.6 10^3/uL (0.0-1.0); MYELOCYTES % (MANUAL) 3 %; NEUTROPHILS # (MANUAL) 7.8 10^3/uL (1.5-6.6); REACTIVE LYMPHS % (MANUAL) 1 %
[2022-01-23 12:03] LABS: BLAST CELLS % (MANUAL) 2 %; DIFFERENTIAL COMMENT MANUAL DIFFERENTIAL; NUCLEATED RBC (MANUAL) 2 %
== END 2022-01-23 11:11 | disposition home or self-care (01) ==
LOC: LAB 11:10
DX: D47.3 Essential (hemorrhagic) thrombocythemia (principal)
CPT/HCPCS: 36415; 85025

== ENCOUNTER 2022-12-12 11:55 | Outpatient (CLI) | payer MEDICARE, OTHER ==
[2022-12-12 12:03] LABS: BASOPHILS # (AUTO) 0.1 10^3/uL (0.0-0.1); BASOPHILS % (AUTO) 0.7 %; EOSINOPHILS # (AUTO) 0.1 10^3/uL (0.0-0.7); EOSINOPHILS % (AUTO) 0.6 %; HCT - HEMATOCRIT 33.8 % (42.0-52.0); HGB - HEMOGLOBIN 10.6 g/dL (14.0-18.0); LYMPHOCYTES % (AUTO) 9.8 %; MEAN CORPUSCULAR HEMOGLOBIN 29.4 pg (27.0-31.0); MEAN CORPUSCULAR HGB CONC 31.4 g/dL (32.0-36.0); MEAN CORPUSCULAR VOLUME 93.6 fL (80.0-94.0); MEAN PLATELET VOLUME 9.4 fL (7.4-11.4); MONOCYTES # (AUTO) 0.8 10^3/uL (0.0-1.0); MONOCYTES % (AUTO) 8.2 %; NEUTROPHILS # (AUTO) 7.4 10^3/uL (1.5-6.6); NEUTROPHILS % (AUTO) 75.3 %; NRBC ABSOLUTE COUNT (AUTO) 0.05 x10^3/uL; NUCLEATED RED BLOOD CELLS AUTO 0.5 /100WBC; PLT - PLATELET COUNT 640 10^3/uL (130-450); RED BLOOD COUNT 3.61 10^6/uL (4.70-6.10); RED CELL DISTRIBUTION WIDTH 19.9 % (12.0-15.0); WHITE BLOOD COUNT 9.9 x10^3/uL (4.8-10.8)
[2022-12-12 12:34] LABS: PLATELET ESTIMATE, MANUAL INCREASED (>450,000) (NORMAL); PLATELET MORPHOLOGY NORMAL APPEARANCE (NORMAL); RBC MORPHOLOGY (MULTIPLE) NORMAL APPEARANCE (NORMAL); SLIDE REVIEW? Indicated
== END 2022-12-12 11:56 | disposition home or self-care (01) ==
LOC: LAB 11:55
PROVIDERS: ATTEND Internal Medicine Hematology & Oncology
DX: D47.3 Essential (hemorrhagic) thrombocythemia (principal)
CPT/HCPCS: 36415; 85025